=== PATIENT | female | born 1985 | race Caucasian/White ===

== ENCOUNTER 2022-01-26 21:12 | Emergency (ER) | payer MEDICAID, SELFPAY ==
[2022-01-26 21:20] VITALS: BP 124/77; PULSE 67; RESP 18; TEMP 36.3; O2SAT 99; BMI 32.7
--- NOTE | 2022-01-26 21:34 | ED.GENADULT ---
HPI - General Adult General Stated complaint: Sore throat, headaches, chest pain, cough Time Seen by Provider: 01/26/22 21:28 History of Present Illness HPI narrative: Pt is a healthy 36 year old woman who presents with pharyngitis for one week. No fever, chills or difficulty with swallowing. She has repeatedly tested negative for COVID 19. No sick contacts. Pt states symptoms are severe. Related Data Home Medications Medication Instructions Recorded Confirmed No Known Home Medications 01/26/22 01/26/22 Allergies Allergy/AdvReac Type Severity Reaction Status Date / Time No Known Drug Allergies Allergy Verified 01/26/22 21:25 Review of Systems Status of ROS: Reports: 10 or more systems reviewed and unremarkable except as noted in History and below PFSH [facility] Social History Smoking Status: Never smoker How often do you have a drink containing alcohol: 2-4 times a month AUDIT-C Alcohol total score: 2 Non-prescribed substance use: denies use Exam Narrative: Exam Narrative: EXAM GENERAL: Patient appears comfortable and well. EYES: No scleral icterus. ENT: Oropharynx is edematous with no tonsillar enlargement. THYROID: no thyroid nodules or thyromegaly. LYMPH: No supraclavicular or cervical lymphadenopathy. SKIN: Visible skin seen during exam normal or with benign process only. EXT: No dependent lower extremity pedal edema. HEART: Regular rate and rhythm with no murmurs, rubs, or gallops. LUNGS: Clear to auscultation bilaterally with no crackles or wheezes. ABD: Soft, non tender, non distended. PSYCH: Good eye contact, speech is not pressured. Const: Vital Signs, click to edit/add: Vital Signs - 24 hr 01/26/22 21:20 Temperature 97.4 F L Pulse Rate [Left P ulse Oximeter] 67 Respiratory Rate 18 Blood Pressure [Ri ght Upper Arm] 124/77 Pulse Oximetry 99 Oxygen Delivery Me thod Room Air Course Vital Signs Vital signs: Initial Vital Signs Temperature 97.4 F L 01/26/22 21:20 Temperature Source Temporal Artery Scan 01/26/22 21:20 Pulse Rate 67 01/26/22 21:20 Respiratory Rate 18 01/26/22 21:20 Blood Pressure 124/77 01/26/22 21:20 Blood Pressure Mean 92 01/26/22 21:20 Blood Pressure Position Sitting 01/26/22 21:20 Pulse Oximetry 99 01/26/22 21:20 Oxygen Delivery Method 01/26/22 21:20 Vital Signs Temperature 97.4 F L 01/26/22 21:20 Pulse Rate 67 01/26/22 21:20 Respiratory Rate 18 01/26/22 21:20 Blood Pressure 124/77 01/26/22 21:20 Pulse Oximetry 99 01/26/22 21:20 Oxygen Delivery Method 01/26/22 21:20 Temperature 97.4 F L 01/26/22 21:20 Pulse Rate 67 01/26/22 21:20 Respiratory Rate 18 01/26/22 21:20 Blood Pressure 124/77 01/26/22 21:20 Pulse Oximetry 99 01/26/22 21:20 Oxygen Delivery Method 01/26/22 21:20 Discharge Plan Discharge Clinical Impression: Pharyngitis Patient Disposition: Home, Self-Care Condition: Stable Instructions: Pharyngitis (ED) Activity Level: No Restrictions Discharge Diet: Regular Prescriptions: No Action No Known Home Medications Follow Up/Referrals: Mary Fulton MD [Primary Care Provider] - Stand Alone Forms: [employer] Info Instructions
[2022-01-26 22:31] LABS: Strep A DNA Probe* NOT DETECTED (No Detected)
== END 2022-01-26 21:47 | disposition home or self-care (01) ==
PROVIDERS: Emergency Provider Internal Medicine; PCP Family Medicine
DX: J02.9 Acute pharyngitis, unspecified (principal)
CPT/HCPCS: 87651; 99283

== ENCOUNTER 2022-03-30 12:50 | Emergency (ER) | payer MEDICAID, SELFPAY ==
[2022-03-30 14:00] VITALS: BP 123/80; PULSE 72; RESP 18; TEMP 36.3; O2SAT 100; BMI 33.1
[2022-03-30 14:38] LABS: Strep A DNA Probe* NOT DETECTED (No Detected)
--- OUTSIDE RECORDS SUMMARY | 2022-03-30 14:48 | XMS_ITS | Clinical Summary ---
:1985 Author Organization [employer] [facility] [place] [address] Care Team Providers Name Role Phone Mary Fulton MD Primary Care Provider Allergies No known active allergies Medications Medication Sig Dispensed Refills Start Date End Date Status ondansetron (ZOFRAN) 4 Take 1 Tablet (4 30 Tablet 0 11/04/2021 Active mg tabletIndications: mg) by mouth every Nausea and vomiting, 8 hours if needed unspecified vomiting for type Nausea/Vomiting. triamcinolone Apply topically to 45 g 0 03/17/2022 Active (ARISTOCORT; KENALOG) affected area(s) 0.1 % three times daily. creamIndications: Bee sting, accidental or unintentional, initial encounter, Allergic reaction to bee sting Active Problems Problem Noted Date Moderate episode of recurrent major depressive disorde r 02/28/2016 Endometriosis 02/06/2015 Eczema, dyshidrotic 08/06/2014 Resolved Problems Problem Noted Date Resolved Date Supervision of other normal 09/07/2007 Encounters Date Type Specialty Care Team Description 03/17/2022 Office Visit Beatriz Echeverria Hand Pain/prob niecy (Left hand JULY Fairchild bee sting on S unday around 2-3 pm./Painful and burning sensation. Warm /hot to the touch and gotte n bigger. Redness has spr ead out more about an inch a nd a half since yesterday ./Patient states has not slept the last few days due to the pain. /Patient used b enadryl and tylenol. Not mu ch helped./Patient had chills yesterday, hamlet es any fevers) 03/17/2022 Travel from Last 3 Months Immunizations Name Administration Dates Next Due Influenza, IIV3 (Age >=3 years) 05/05/2010, 04/12/2008 Tdap 07/14/2019, 09/28/2009 Family History Medical History Relation Name Comments ADD / ADHD Brother Good Health Father Diabetes Maternal Grandmother Good Health Mother Cancer Paternal Grandfather unknown Other Paternal Grandfather from COVID Diabetes Paternal Grandmother Mental illness Sister Relation Name Status Comments Brother Father Alive Maternal Grandmother Mother Alive Paternal Grandfather Paternal Grandmother Sister Social History Tobacco Use Types Packs/Day Years Used Date Never Smoker Smokeless Tobacco: Never Used Tobacco Cessation: Counseling Given: Yes Alcohol Use Standard Drinks/Week Comments Not Currently 0 (1 standard drink = 0.6 oz pure alcoho l) 2 x per week Alcohol Habits Answer Date Recorded How often do you have a drink containing alcohol? Not asked How many drinks containing alcohol do you have on a Not aske d typical day when you are drinking? How often do you have six or more drinks on one occasion? No t asked Comment: 2 x per week 11/04/2021 Sex Assigned at Date Recorded Not on file COVID-19 Exposure Response Date Recorded In the last 10 days, have you been in contact with No / Unsu re 03/17/2022 3:15 PM CDT someone who was confirmed or suspected to have Coronavirus/COVID-19? Obstetrics History Para Term AB IAB SAB Ectopic Multiple Living Live Births 4 4 2 1 0 0 0 0 4 Date Outcome GA Total Labor/2nd/3rd Weight Sex Delivery Anes PTL Dominga A 1 A5 Name Clin Labor Term Term Para Last Filed Vital Signs Vital Sign Reading Time Taken Comments Blood Pressure 111/76 03/17/2022 3:23 PM CDT Pulse 77 03/17/2022 3:23 PM CDT Temperature 36.6 ??C (97.8 ??F) 03/17/2022 3:23 PM CDT Respiratory Rate 16 10/08/2010 6:30 PM CDT Oxygen Saturation 97% 03/17/2022 3:23 PM CDT Inhaled Oxygen Concentration - - Weight 81.6 kg (180 lb) 03/17/2022 3:23 PM CDT Height 153 cm (5' 0.25) 02/26/2021 1:04 PM CDT Body Mass Index 34.86 02/26/2021 1:04 PM CDT Plan of Treatment Health Maintenance Due Date Last Done Comments Hepatitis C screening for age 0801/31/2004 18-79 Depression screening for age 12+ 07/14/2020 07/14/2019, , 02/17/2017, Additional history exists Pap test for age 21-65 02/27/2021 02/28/2016, 02/28/2016, 10/19/2013, Additional history exists COVID-19 vaccine series (2 - 03/17/2021 02/17/2021 Moderna series) Influenza for age 9-49 02/19/2022 05/05/2010, 04/12/2008 BMI (ht and wt on same day) for 02/26/2022 02/26/2021, 12/2020, age 18+ 10/21/2020, Additional history exists Tetanus booster 07/14/2029 07/14/2019, 09/28/2009 Tdap Completed 07/14/2019, 09/28/2009 Results Not on filefrom Last 3 Months Insurance Payer Benefit Plan / Subscriber ID Effective Dates Phone Addre ss Type Group [employer] ADELSO NOBLE ADELSO [id number] 2021-Present [address] [place] [address] (Home) [place] [address] [place] Inmate Billing Other 06/21/1968 [address] (Home) [facility] [address] Advance Directives Latest Code Status on File Code Status Date Activated Date Inactivated Comments Full Code 10/08/2010 9:24 AM 10/08/2010 9:56 PM Full Code 09/26/2009 2:13 AM 09/28/2009 2:12 PM Full Code 09/21/2009 6:08 PM 09/22/2009 2:04 AM Full Code 09/20/2009 10:26 AM 09/20/2009 4:56 PM Full Code 09/06/2009 8:11 AM 09/06/2009 12:17 PM Care Teams Digital Engineer Relationship Specialty Start Date End Date Mary Fulton MD PCP - General Family Practice 02/28/16 [address] [place] [address]
[2022-03-30 14:50] LABS: PCR FLU A Negative PCR FLU A (Negative); PCR FLU B Negative PCR FLU B (Negative); PCR RSV Negative PCR RSV (Negative)
[2022-03-30 14:51] LABS: SARS PCR* Negative SARS-CoV-2 (Negative)
[2022-03-30 14:52] VITALS: BP 117/59; PULSE 67; RESP 16; O2SAT 98
--- NOTE | 2022-03-30 15:09 | ED.GENADULT ---
HPI - General Adult General Chief complaint: Cough Stated complaint: Vomiting, fever, chest pain Time Seen by Provider: 03/30/22 13:30 History of Present Illness HPI narrative: This 37-year-old female comes in reporting upper respiratory symptoms that began this morning. She reports coughing with posttussive emesis. She states that she had a fever and did take Tylenol. She does not report any shortness of breath. She states that she has a sore throat. Prior to this she has been in good health. Related Data Previous Rx's Medication Instructions Recorded ketorolac 10 mg tablet 10 mg PO Q8H 5 days #15 tabs 03/30/22 methylprednisolone 4 mg tablets in See Rx Instructions PO .COMPLEX 03/30/22 a dose pack (Medrol (Andi)) #21 ea ondansetron HCl 4 mg tablet 4 mg PO Q6H #10 tabs 03/30/22 Allergies Allergy/AdvReac Type Severity Reaction Status Date / Time No Known Drug Allergies Allergy Verified 01/26/22 21:25 Review of Systems Status of ROS: Reports: 10 or more systems reviewed and unremarkable except as noted in History and below Narrative: Constitutional: No weight gain or loss. Eyes: No discharge. No vision changes. HENT: No congestion, no sore throat, no ear pain. Cardiovascular: No chest pain, no palpitations. Respiratory: No shortness of breath, no wheezes. Frequent cough. Gastrointestinal: No abdominal pain, no diarrhea. Repeated vomiting. Genitourinary: No dysuria, no hematuria. Musculoskeletal: Normal range of motion. Skin: No rashes, no pruritis. Neurological: No dizziness, weakness, sensory change, speech change. Endo/Heme/Allergies: No bruising or bleeding. No polydipsia. Pysch: no suicidality, no anxiety, no insomnia. All other systems reviewed and are negative. [facility] Social History Smoking Status: Never smoker How often do you have a drink containing alcohol: 2-4 times a month AUDIT-C Alcohol total score: 2 Non-prescribed substance use: denies use service: No Exam Narrative: Exam Narrative: Constitutional: Well-developed, well-nourished, no acute distress. HEENT: Normocephalic, atraumatic. Neck: Normal range of motion. Nontender. Supple. Heart: Regular. No murmurs. Normal rate. Intact distal pulses. Lungs: Clear to auscultation. No chest discomfort. No wheezes, rhonchi, or rales. Abdomen: Normal bowel sounds. Nontender. No rebound tenderness. Genitalia: Deferred. Back: No midline tenderness. Normal range of motion. Extremities: Normal range of motion. No injury. Skin: Intact. No rash. Warm. No erythema or pallor. Neurologic: No altered sensation. No weakness. Alert and oriented. Psychiatric: No suicidality. No anxiety or depression. No insomnia. Nursing notes and vitals signs are reviewed. Const: Vital Signs, click to edit/add: Vital Signs - 24 hr 03/30/22 14:00 03/30/22 14:52 Temperature 97.3 F L Pulse Rate [Right Pulse Oximeter] 72 67 Respiratory Rate 18 16 Blood Pressure [Ri ght Upper Arm] 123/80 117/59 L Pulse Oximetry 100 98 Oxygen Delivery Me thod Room Air Room Air Course Vital Signs Vital signs: Initial Vital Signs Temperature 97.3 F L 03/30/22 14:00 Temperature Source Temporal Artery Scan 03/30/22 14:00 Pulse Rate 72 03/30/22 14:00 Respiratory Rate 18 03/30/22 14:00 Blood Pressure 123/80 03/30/22 14:00 Blood Pressure Mean 94 03/30/22 14:00 Blood Pressure Position Sitting 03/30/22 14:00 Pulse Oximetry 100 03/30/22 14:00 Oxygen Delivery Method 03/30/22 14:00 Vital Signs Temperature 97.3 F L 03/30/22 14:00 Pulse Rate 72 03/30/22 14:00 Respiratory Rate 18 03/30/22 14:00 Blood Pressure 123/80 03/30/22 14:00 Pulse Oximetry 100 03/30/22 14:00 Oxygen Delivery Method 03/30/22 14:00 Temperature 97.3 F L 03/30/22 14:00 Pulse Rate 67 03/30/22 14:52 Respiratory Rate 16 03/30/22 14:52 Blood Pressure 117/59 L 03/30/22 14:52 Pulse Oximetry 98 03/30/22 14:52 Oxygen Delivery Method 03/30/22 14:52 Medical Decision Making MDM Narrative Medical decision making narrative: This patient comes in with upper respiratory symptoms that began this morning. Testing for strep, influenza, COVID, and RSV all returned negative. This patient has normal vital signs. She did received prescription for Toradol, Zofran, and Medrol Dosepak. She is requesting a day off from work also. Lab Data Labs: Lab Results 03/30/22 03/30/22 Range/Units 14:02 14:02 SARS-CoV-2 (PCR) Negative SARS-CoV-2 (Negative) Influenza Type A (PCR) Negative PCR FLU A (Negative) Influenza Type B (PCR) Negative PCR FLU B (Negative) RSV (PCR) Negative PCR RSV (Negative) Group A Strep DNA NOT DETECTED (No Detected) Discharge Plan Discharge Clinical Impression: Acute upper respiratory infection Patient Disposition: Home, Self-Care Condition: Stable Additional Instructions: Take medication as needed and indicated. Follow up with MD or return if worsening. Prescriptions: New ondansetron HCl 4 mg tablet 4 mg PO Q6H Qty: 10 0RF ketorolac 10 mg tablet 10 mg PO Q8H 5 Days Qty: 15 0RF methylprednisolone [Medrol (Andi)] 4 mg tablets,dose pack See Rx Instructions .ROUTE .COMPLEX Qty: 21 0RF Rx Instructions: orally per package directions Follow Up/Referrals: Mary Fulton MD [Primary Care Provider] - Stand Alone Forms: [employer] Info Instructions
[2022-03-30] MEDS: ONDANSETRON ODT 4 MG TAB PO (15:18)
[2022-03-30 15:40] VITALS: BP 122/62; PULSE 67; RESP 16; TEMP 36.3
== END 2022-03-30 15:42 | disposition home or self-care (01) ==
PROVIDERS: Emergency Provider Emergency Medicine Emergency Medical Services; PCP Family Medicine
DX: J06.9 Acute upper respiratory infection, unspecified (principal)
CPT/HCPCS: 87502; 87631; 87634; 87635; 87651; 99283; 99284; A9270

== ENCOUNTER 2022-05-31 18:42 | Emergency (ER) | payer MEDICAID, SELFPAY ==
[2022-05-31 18:55] VITALS: BP 124/77; PULSE 102; RESP 18; TEMP 37.3; O2SAT 99; BMI 33.1
--- NOTE | 2022-05-31 19:13 | ED_ITS ---
HPI - General Adult General Chief complaint: Fever Stated complaint: Fever, Vomiting, Chest Pain, Aches Time Seen by Provider: 05/31/22 19:08 History of Present Illness HPI narrative: This 37-year-old female comes in reporting generalized body aches and pains with fever, cough, and nasal congestion. These symptoms hit her rather suddenly yesterday. She did measure a temperature of 101.6?. She arrives here with normal temperature. She does not report any shortness of breath. Related Data Home Medications Medication Instructions Recorded Confirmed No Known Home Medications 05/31/22 05/31/22 Allergies Allergy/AdvReac Type Severity Reaction Status Date / Time No Known Drug Allergies Allergy Verified 05/31/22 19:01 Review of Systems Status of ROS: Reports: 10 or more systems reviewed and unremarkable except as noted in History and below Narrative: Constitutional: No weight gain or loss. She reports a fever. Eyes: No discharge. No vision changes. HENT: No ear pain. She has nasal congestion and sore throat. Cardiovascular: No palpitations. Respiratory: No shortness of breath, no wheezes. Chest discomfort when coughing. Gastrointestinal: No abdominal pain, no vomiting, no diarrhea. Genitourinary: No dysuria, no hematuria. Musculoskeletal: Normal range of motion. Skin: No rashes, no pruritis. Neurological: No dizziness, weakness, sensory change, speech change. Endo/Heme/Allergies: No bruising or bleeding. No polydipsia. Pysch: no suicidality, no anxiety, no insomnia. All other systems reviewed and are negative. [facility] Social History Smoking Status: Never smoker How often do you have a drink containing alcohol: 2-4 times a month AUDIT-C Alcohol total score: 2 Non-prescribed substance use: denies use service: No Exam Narrative: Exam Narrative: Constitutional: Well-developed, well-nourished, no acute distress. HEENT: Normocephalic, atraumatic. Neck: Normal range of motion. Nontender. Supple. Heart: Regular. No murmurs. Normal rate. Intact distal pulses. Lungs: Clear to auscultation. No chest discomfort. No wheezes, rhonchi, or rales. Abdomen: Normal bowel sounds. Nontender. No rebound tenderness. Genitalia: Deferred. Back: No midline tenderness. Normal range of motion. Extremities: Normal range of motion. No injury. Skin: Intact. No rash. Warm. No erythema or pallor. Neurologic: No altered sensation. No weakness. Alert and oriented. Psychiatric: No suicidality. No anxiety or depression. No insomnia. Nursing notes and vitals signs are reviewed. Const: Vital Signs, click to edit/add: Vital Signs - 24 hr 05/31/22 18:55 Temperature 99.1 F Pulse Rate [Right Pulse Oximeter] 102 H Respiratory Rate 18 Blood Pressure [Ri ght Upper Arm] 124/77 Pulse Oximetry 99 Oxygen Delivery Me thod Room Air Course Vital Signs Vital signs: Initial Vital Signs Temperature 99.1 F 05/31/22 18:55 Temperature Source Temporal Artery Scan 05/31/22 18:55 Pulse Rate 102 H 05/31/22 18:55 Respiratory Rate 18 05/31/22 18:55 Blood Pressure 124/77 05/31/22 18:55 Blood Pressure Mean 92 05/31/22 18:55 Blood Pressure Position Sitting 05/31/22 18:55 Pulse Oximetry 99 05/31/22 18:55 Oxygen Delivery Method 05/31/22 18:55 Vital Signs Temperature 99.1 F 05/31/22 18:55 Pulse Rate 102 H 05/31/22 18:55 Respiratory Rate 18 05/31/22 18:55 Blood Pressure 124/77 05/31/22 18:55 Pulse Oximetry 99 05/31/22 18:55 Oxygen Delivery Method 05/31/22 18:55 Temperature 99.1 F 05/31/22 18:55 Pulse Rate 102 H 05/31/22 18:55 Respiratory Rate 18 05/31/22 18:55 Blood Pressure 124/77 05/31/22 18:55 Pulse Oximetry 99 05/31/22 18:55 Oxygen Delivery Method 05/31/22 18:55 Medical Decision Making MDM Narrative Medical decision making narrative: This patient comes in with typical symptoms of influenza. Testing does confirm presence of influenza a. The patient received a prescription for Tamiflu and some tablets of Tylenol 3. Lab Data Labs: Lab Results 05/31/22 Range/Units 19:06 SARS-CoV-2 (PCR) Negative SARS-CoV-2 (Negative) Influenza Type A (PCR) POSITIVE PCR FLU A A (Negative) Influenza Type B (PCR) Negative PCR FLU B (Negative) Discharge Plan Discharge Clinical Impression: Influenza A Patient Disposition: Home, Self-Care Condition: Unchanged Additional Instructions: Take medication as needed and indicated. Follow up with MD or return if worsening. Prescriptions: No Action No Known Home Medications Follow Up/Referrals: Mary Fulton MD [Primary Care Provider] - Stand Alone Forms: [employer] Info Instructions
--- OUTSIDE RECORDS SUMMARY | 2022-05-31 19:17 | XMS_ITS | Clinical Summary ---
:1985 Author Organization [employer] [facility] [place] [address] Care Team Providers Name Role Phone Mary Fulton MD Primary Care Provider [phone] Allergies No known active allergies Medications Medication [...] Tobacco Use Types Packs/Day Years Used Date Smoking Tobacco: Never Smokeless Tobacco: Never Tobacco Cessation: Counseling Given: Yes Alcohol Use Standard Drinks/Week Comments Not Currently 0 (1 standard drink = 0.6 oz pure alcoho l) 2 x per week Sex Assigned at Date Recorded Not on file Obstetrics History Para Term AB IAB SAB [...] wt on same day) for 02/26/2022 02/26/2021, 09/12/2020, age 18+ 10/21/2020, Additional history exists Tetanus booster 07/14/2029 07/14/2019, 09/28/2009 HIV for age 15-65 Completed 03/17/2013, 09/07/2007 Tdap Completed 07/14/2019, 09/28/2009 Results Not on filefrom Last 3 Months Insurance Payer Benefit Plan / Subscriber ID Effective Dates Phone Addre ss Type Group [employer] ADELSO CASTAÑEDAALYX ADELSO [id number] 2021-Present [address] [place] [address] Advance Directives Latest Code Status on File Code Status Date Activated Date Inactivated Comments Full Code 10/08/2010 9:24 AM 10/08/2010 9:56 PM Code Status History Code Status Date Activated Date Inactivated Comments Full Code 09/26/2009 2:13 AM 09/28/2009 2:12 PM Full Code 09/21/2009 6:08 PM 09/22/2009 2:04 AM Full Code 09/20/2009 10:26 AM 09/20/2009 4:56 PM Full Code 09/06/2009 8:11 AM 09/06/2009 12:17 PM Care Teams [employer] Relationship Specialty Start Date End Date Mary Fulton MD PCP - General Family Practice 02/28/16 [address] [place] [address]
[2022-05-31 19:55] LABS: PCR FLU A POSITIVE PCR FLU A (Negative); PCR FLU B Negative PCR FLU B (Negative)
[2022-05-31 19:59] LABS: SARS PCR* Negative SARS-CoV-2 (Negative)
[2022-05-31 20:16] VITALS: RESP 18; O2SAT 98
[2022-05-31 20:18] VITALS: BP 116/78; PULSE 91; RESP 18
== END 2022-05-31 20:18 | disposition home or self-care (01) ==
PROVIDERS: Emergency Provider Emergency Medicine Emergency Medical Services; PCP Family Medicine
DX: J09.X2 Influenza due to identified novel influenza A virus with other respiratory manifestations (principal)
CPT/HCPCS: 87631; 99283; 99284

== ENCOUNTER 2022-08-05 15:33 | Emergency (ER) | payer MEDICAID, SELFPAY ==
[2022-08-05 15:43] VITALS: BP 123/79; PULSE 72; RESP 16; TEMP 36.4; O2SAT 99; BMI 33.2
--- NOTE | 2022-08-05 17:03 | ED_ITS ---
HPI - Headache General Chief Complaint: Headache/Migraine Stated Complaint: Headache Time Seen by Provider: 08/05/22 16:44 History of Present Illness HPI Narrative: This 37-year-old female comes in reporting neck pain causing a occipital type headache over the past 3 or 4 days. She states that she woke up a few days ago and thought that she might have slept wrong causing some neck discomfort. She massaged her neck and did not get much relief. Instead symptoms have worsened. She did go to urgent care yesterday and received prescription for a steroid and Flexeril. These treatments have not helped her. She does not report any fevers. She does not have any neurologic deficits. She does not report a history of prior neck pain and there was no mechanism of injury or strenuous activity to trigger these symptoms. Related Data Previous Rx's Medication Instructions Recorded ketorolac 10 mg tablet 10 mg PO Q8H 5 days #15 tabs 08/05/22 Allergies Allergy/AdvReac Type Severity Reaction Status Date / Time No Known Drug Allergies Allergy Verified 08/05/22 15:47 Review of Systems Status of ROS: Reports: 10 or more systems reviewed and unremarkable except as noted in History and below Narrative: Constitutional: No fevers, no weight gain or loss. Eyes: No discharge. No vision changes. HENT: No congestion, no sore throat, no ear pain. Cardiovascular: No chest pain, no palpitations. Respiratory: No shortness of breath, no wheezes, no cough. Gastrointestinal: No abdominal pain, no vomiting, no diarrhea. Genitourinary: No dysuria, no hematuria. Musculoskeletal: Normal range of motion. Diffuse pain in the posterior neck radiating into the occipital region with headache. Skin: No rashes, no pruritis. Neurological: No dizziness, weakness, sensory change, speech change. Endo/Heme/Allergies: No bruising or bleeding. No polydipsia. Pysch: no suicidality, no anxiety, no insomnia. All other systems reviewed and are negative. [facility] Social History Smoking Status: Never smoker Do you use any of these nicotine containing products: None How often do you have a drink containing alcohol: 2-4 times a month AUDIT-C Alcohol total score: 2 Non-prescribed substance use: denies use service: No Exam Narrative: Exam Narrative: Constitutional: Well-developed, well-nourished, no acute distress. HEENT: Normocephalic, atraumatic. Neck: Normal range of motion. No midline tenderness when palpating along the spine. Supple. Heart: Regular. No murmurs. Normal rate. Intact distal pulses. Lungs: Clear to auscultation. No chest discomfort. No wheezes, rhonchi, or rales. Abdomen: Normal bowel sounds. Nontender. No rebound tenderness. Genitalia: Deferred. Back: No midline tenderness. Normal range of motion. Extremities: Normal range of motion. No injury. Skin: Intact. No rash. Warm. No erythema or pallor. Neurologic: No altered sensation. No weakness. Alert and oriented. Psychiatric: No suicidality. No anxiety or depression. No insomnia. Nursing notes and vitals signs are reviewed. Const: Vital Signs, click to edit/add: Vital Signs - 24 hr 08/05/22 15:43 Temperature 97.5 F L Pulse Rate [Pulse Oximeter] 72 Respiratory Rate 16 Blood Pressure [Ri ght Upper Arm] 123/79 Pulse Oximetry 99 Oxygen Delivery Me thod Room Air Course Vital Signs Vital signs: Initial Vital Signs Temperature 97.5 F L 08/05/22 15:43 Temperature Source Temporal Artery Scan 08/05/22 15:43 Pulse Rate 72 08/05/22 15:43 Pulse Rhythm 08/05/22 15:43 Pulse Strength 3+ Normal 08/05/22 15:43 Respiratory Rate 16 08/05/22 15:43 Blood Pressure 123/79 08/05/22 15:43 Blood Pressure Mean 93 08/05/22 15:43 Blood Pressure Position Sitting 08/05/22 15:43 Pulse Oximetry 99 08/05/22 15:43 Oxygen Delivery Method 08/05/22 15:43 Vital Signs Temperature 97.5 F L 08/05/22 15:43 Pulse Rate 72 08/05/22 15:43 Respiratory Rate 16 08/05/22 15:43 Blood Pressure 123/79 08/05/22 15:43 Pulse Oximetry 99 08/05/22 15:43 Oxygen Delivery Method 08/05/22 15:43 Temperature 97.5 F L 08/05/22 15:43 Pulse Rate 72 08/05/22 15:43 Respiratory Rate 16 08/05/22 15:43 Blood Pressure 123/79 08/05/22 15:43 Pulse Oximetry 99 08/05/22 15:43 Oxygen Delivery Method 08/05/22 15:43 MDM - Headache MDM Narrative Medical decision making narrative: This patient comes in with an occipital type headache with neck pain which is typical of a tension headache. She did not have any particular injury event or disability that requires imaging. She does have pain on either side of the nuchal ligament in the area of the occipital nerves. I did offer a therapeutic injection in this area which she agreed to. She received 125 mg of Solu-Medrol and 2% lidocaine totaling 6 mL. 3 mL was injected on either side of the nuchal ligament overlying the occipital nerves. The patient tolerated this well. She also received an intramuscular injection of Toradol 30 mg. This brought significant relief to her symptoms within 15-20 minutes. She is okay to be discharged home and did receive a prescription for Toradol. Discharge Plan Discharge Clinical Impression: Tension headache Patient Disposition: Home, Self-Care Condition: Stable Additional Instructions: Take medication as needed and indicated. Increase activity as tolerated. Follow up with MD or return if worsening. Prescriptions: New ketorolac 10 mg tablet 10 mg PO Q8H 5 Days Qty: 15 0RF Follow Up/Referrals: Mary Fulton MD [Primary Care Provider] - Stand Alone Forms: [employer] Info Instructions
[2022-08-05] MEDS: KETOROLAC 30 MG/ML inj IM (17:08)
[2022-08-05] MEDS: METHYLPREDNISOLONE SOD SUCC 62.5 MG/ML (125) 125 MG IM (17:09)
[2022-08-05] MEDS: lidocaine HCL 2 % MULTIDOSE 20 ML VIAL INJECTION (17:09)
[2022-08-05 17:43] VITALS: BP 119/66
== END 2022-08-05 17:49 | disposition home or self-care (01) ==
PROVIDERS: Emergency Provider Emergency Medicine Emergency Medical Services; PCP Family Medicine
DX: M54.81 Occipital neuralgia (principal)
CPT/HCPCS: 20552; 96372; 99283; 99284; J1885; J2930

== ENCOUNTER 2022-08-13 21:14 | Emergency (ER) | payer MEDICAID, SELFPAY ==
[2022-08-13 21:20] VITALS: BP 123/85; PULSE 78; RESP 16; TEMP 35.6; O2SAT 99
--- NOTE | 2022-08-13 21:39 | ED.GENADULT ---
HPI - General Adult General Time Seen by Provider: 21:39 Date Seen: 08/13/22 Chief complaint: Head Injury/Pain Stated complaint: Pain back of head,right ear, and neck Time Seen by Provider: 08/13/22 21:37 Source: patient and RN notes reviewed Mode of arrival: ambulatory Limitations: no limitations History of Present Illness HPI narrative: Patient is a 37-year-old female coming in with right-sided neck pain pain in the back of her head. Is generalizing up her right ear now. No visual changes no hearing changes. There is no trauma, no fevers. She has had symptoms for about 2 weeks. It went away a little bit but now is coming back. She was off work for about 4 days last week. She did go into the clinic. She has sporadically used Tylenol and ibuprofen. It is not going into her arms, no numbness tingling or weakness. No rash noted. Pain will come in almost shock like fashion at time. She states sometimes it will feel like when you go to the dentist in the hit a nerve root, almost like a zinging type pain. Related Data Previous Rx's Medication Instructions Recorded ketorolac 10 mg tablet 10 mg PO Q8H 5 days #15 tabs 08/05/22 Allergies Allergy/AdvReac Type Severity Reaction Status Date / Time No Known Drug Allergies Allergy Verified 08/05/22 15:47 Review of Systems Status of ROS: Reports: 6 or more systems reviewed and unremarkable except as noted in History and below [facility] Social History Smoking Status: Never smoker Do you use any of these nicotine containing products: None How often do you have a drink containing alcohol: 2-4 times a month AUDIT-C Alcohol total score: 2 Non-prescribed substance use: denies use service: No Exam Narrative: Exam Narrative: Patient is sitting on the bed, does not want to turn her neck. Pupils equal round reactive to light scar clear she is able to speak in complete sentences. TMs canals are normal ears are normal. Scalp in skin of the head neck or without any rash. There is no midline tenderness of her spine. She has some point tenderness over the right occipital area and not the left. There is no neck masses no cervical adenopathy no thyromegaly masses or nodules lungs clear, good air entry, no difficulty breathing. CV regular rate and rhythm no murmur. Arms have symmetrical movement, strength is 5/5 in normal. Normal light touch sensation. Const: Vital Signs, click to edit/add: Vital Signs - 24 hr 08/13/22 21:20 Temperature 96.0 F L Pulse Rate [Left F emoral] 78 Respiratory Rate 16 Blood Pressure [Ri ght Upper Arm] 123/85 Pulse Oximetry 99 Oxygen Delivery Me thod Room Air Course Course Hospital Course: Have reviewed with patient that I think that this represents probable occipital neuralgia. We will get a baseline x-ray just to see if she has significant underlying arthritis or changes in her neck. I do not think labs are necessary at this time. Will talk to her further about a course of Toradol and scheduled Tylenol. Once I have seen her cervical spine x-ray we have discussed doing trigger point injection with some lidocaine in the area. She would like to proceed with this. Reevaluation(s) Reevaluation #1: Reviewed with patient that my preliminary review of her films shows loss of the normal lordosis that can be seen with muscle tension and spasm. I do not see any acute bony abnormalities but we will await the Radiology over-read. Patient was consented on trigger point injection along the right occipital area. Risks and benefits were reviewed. We reviewed that it was her right side. I palpated the area and found maximal point tenderness in actually was able to recreate the sharp pain by palpating over the right occiput. 5 mL of 2% plain lidocaine was drawn up and was fanned out over the area of maximal tenderness. She tolerated this well there were no immediate complications. Did offer her a dose of IM Toradol which she would like, will subsequently order 30 mg IM Toradol. We discussed use of oral Toradol and Flexeril with combination acetaminophen at time of discharge. Time: 22:44 Additional Reevaluation(s): As patient was walking out of the ER, did briefly talk to her. Her head is overall feeling better back there. She can feel little soreness but symptoms have improved. Vital Signs Vital signs: Initial Vital Signs Temperature 96.0 F L 08/13/22 21:20 Temperature Source Temporal Artery Scan 08/13/22 21:20 Pulse Rate 78 08/13/22 21:20 Pulse Rhythm 08/13/22 21:20 Respiratory Rate 16 08/13/22 21:20 Blood Pressure 123/85 08/13/22 21:20 Blood Pressure Mean 97 08/13/22 21:20 Blood Pressure Position Sitting 08/13/22 21:20 Pulse Oximetry 99 08/13/22 21:20 Oxygen Delivery Method 08/13/22 21:20 Vital Signs Temperature 96.0 F L 08/13/22 21:20 Pulse Rate 78 08/13/22 21:20 Respiratory Rate 16 08/13/22 21:20 Blood Pressure 123/85 08/13/22 21:20 Pulse Oximetry 99 08/13/22 21:20 Oxygen Delivery Method 08/13/22 21:20 Temperature 96.0 F L 08/13/22 21:20 Pulse Rate 78 08/13/22 21:20 Respiratory Rate 16 08/13/22 21:20 Blood Pressure 123/85 08/13/22 21:20 Pulse Oximetry 99 08/13/22 21:20 Oxygen Delivery Method 08/13/22 21:20 Medical Decision Making Imaging Data X-ray cervical spine: Attestation: I have reviewed the pertinent imaging results. Radiologist's impression: Patient: PERCY KLEIN Facility:?[facility] Patient ID:?[id number] Site Patient ID:?[id number]. Site :?[id number] Study:?XRay Spine Cervical 4V-08/13/2022 10:47:08 PM Ordering Physician:Sen Babb Final Report: Indication: Neck pain, no history of trauma Technique: Four view cervical spine Comparison: None Findings: The lateral and swimmer`s views demonstrate the skull base to the C6 vertebral body. Bones: Alignment is normal. No fractures or bone lesions. Joint spaces: Unremarkable. Soft tissues: Unremarkable. Impression: The lateral views only include the skull base to the C6 vertebral body. Recommend CT for complete evaluation through the cervical thoracic junction. No abnormality seen in the visualized cervical spine. Dictated by Zian Hickey MD @ 08/13/2022 11:09:20 PM (Electronic Signature) Critical Care Time Critical Care Time Critical Care Time: No Discharge Plan Discharge Clinical Impression: Cervico-occipital neuralgia of right side Patient Disposition: Home, Self-Care Condition: Stable Instructions: Acute Headache (ED) Additional Instructions: I believe your symptoms are coming from a condition called occipital neuralgia. We will try a course of scheduled Toradol. You can use Flexeril at bedtime as needed to help with sleep. Take Tylenol 1000 mg 3 times a day for the next 1-2 weeks as well. You do need you to get scheduled to follow up in clinic for recheck. If you have ongoing issues, you may need to be referred to Neurology for further evaluation and treatment of this. You can try ice or heat in use whichever makes this feel better. I would recommend trying ice 1st. Activity Level: Activity as Tolerated Prescriptions: No Action ketorolac 10 mg tablet 10 mg PO Q8H 5 Days Qty: 15 0RF Follow Up/Referrals: Mary Fulton MD [Primary Care Provider] - Stand Alone Forms: [employer] Info Instructions
--- NOTE | 2022-08-13 21:48 | CRLHL7_ITS ---
For Patients: As a result of the Century Cures Act, medical imaging exams and procedure reports are released immediately into your electronic medical record. You may view this report before your referring provider. If you have questions, please contact your health care provider. Indication: Neck pain, no history of trauma Technique: Four view cervical spine Comparison: None Findings: The lateral and swimmer`s views demonstrate the skull base to the C6 vertebral body. Bones: Alignment is normal. No fractures or bone lesions. Joint spaces: Unremarkable. Soft tissues: Unremarkable. Impression: The lateral views only include the skull base to the C6 vertebral body. Recommend CT for complete evaluation through the cervical thoracic junction. No abnormality seen in the visualized cervical spine. Dictated by Zina Hickey MD @ 08/13/2022 11:09:20 PM (Electronically Signed)
== END 2022-08-13 23:20 | disposition home or self-care (01) ==
PROVIDERS: Emergency Provider Family Medicine; PCP Family Medicine
DX: M54.81 Occipital neuralgia (principal)
CPT/HCPCS: 20552; 72040; 99283

== ENCOUNTER 2023-01-24 23:47 | Emergency (ER) | payer MEDICAID, SELFPAY ==
[2023-01-24 23:53] VITALS: BP 114/77; PULSE 69; RESP 16; TEMP 36.6; O2SAT 100; BMI 33.4
--- NOTE | 2023-01-25 00:06 | ED_ITS ---
HPI - General Adult General Chief complaint: Extremity Pain/Injury, Upper Stated complaint: fracture or broken thumb - left side Time Seen by Provider: 01/24/23 23:57 Source: patient Mode of arrival: ambulatory Limitations: no limitations History of Present Illness HPI narrative: 37-year-old female coming in today complaining of thumb pain going on for approximately 3 days. He she seems to get worse. Movement makes it worse, nothing seems to make it better. It throbs when she is at rest. She has a hard time setting the palmar surface of the thumb down with any surface is that seems to irritate it. She denies pain in any other joints, no fevers or chills. No recent illness or systemic symptoms. Related Data Previous Rx's Medication Instructions Recorded methylprednisolone 4 mg tablets in See Rx Instructions PO .COMPLEX 01/25/23 a dose pack (Medrol (Andi)) #21 ea Allergies Allergy/AdvReac Type Severity Reaction Status Date / Time No Known Drug Allergies Allergy Verified 08/05/22 15:47 Review of Systems Status of ROS: Reports: 6 or more systems reviewed and unremarkable except as noted in History and below PFSH [facility] Social History Smoking Status: Never smoker Do you use any of these nicotine containing products: None How often do you have a drink containing alcohol: 2-4 times a month AUDIT-C Alcohol total score: 2 Non-prescribed substance use: denies use service: No Exam Narrative: Exam Narrative: Well-nourished well-developed patient in no acute distress. Alert and oriented. Answers questions appropriately. Mood and affect are appropriate. Thoughts are goal oriented and rational. No tangential or magical thinking noted. Patient speaks in full sentences without needing to catch their breath. HEENT: Normocephalic atraumatic. Pupils are equally round reactive to light. Extraocular muscles are intact. Conjunctivae are moist without any icterus noted. Moist mucous membranes. Hand: Has normal appearance. Her thumb is not swollen or erythematous. She has full range of motion at the MCP and the interphalangeal joint. This does not cause tenderness. On the palmar surface of the thumb just proximal to the interphalangeal joint she has a palpable tendon that can be moved back and forth, this causes her discomfort. Const: Vital Signs, click to edit/add: Vital Signs - 24 hr 01/24/23 23:53 Temperature 97.9 F Pulse Rate [Right Pulse Oximeter] 69 Respiratory Rate 16 Blood Pressure [Ri ght Upper Arm] 114/77 Pulse Oximetry 100 Oxygen Delivery Me thod Room Air Course Vital Signs Vital signs: Initial Vital Signs Temperature 97.9 F 01/24/23 23:53 Temperature Source Temporal Artery Scan 01/24/23 23:53 Pulse Rate 69 01/24/23 23:53 Pulse Rhythm Regular 01/24/23 23:53 Respiratory Rate 16 01/24/23 23:53 Blood Pressure 114/77 01/24/23 23:53 Blood Pressure Mean 89 01/24/23 23:53 Blood Pressure Position Sitting 01/24/23 23:53 Pulse Oximetry 100 01/24/23 23:53 Oxygen Delivery Method Room Air 01/24/23 23:53 Vital Signs Temperature 97.9 F 01/24/23 23:53 Pulse Rate 69 01/24/23 23:53 Respiratory Rate 16 01/24/23 23:53 Blood Pressure 114/77 01/24/23 23:53 Pulse Oximetry 100 01/24/23 23:53 Oxygen Delivery Method Room Air 01/24/23 23:53 Temperature 97.9 F 01/24/23 23:53 Pulse Rate 69 01/24/23 23:53 Respiratory Rate 16 01/24/23 23:53 Blood Pressure 114/77 01/24/23 23:53 Pulse Oximetry 100 01/24/23 23:53 Oxygen Delivery Method Room Air 01/24/23 23:53 Medical Decision Making MDM Narrative Medical decision making narrative: 37-year-old female with tendonitis. Patient will be placed in a thumb spica and given a Medrol Dosepak. We discussed ibuprofen use as needed. We discussed activity modification. Discussed follow-up with primary care or orthopedics. Patient was in agreement and had no other questions. Discharge Plan Discharge Clinical Impression: Tendinitis Patient Disposition: Home, Self-Care Condition: Stable Additional Instructions: It appears that you have an inflammation of a tendon in the thumb. This is generally caused by repetitive activity or trauma directly on the thumb-this could certainly be caused by caring heavy items. You will be placed in a thumb spica today which will keep the thumb from moving, and you will be given steroid pack to help with the inflammation. Okay to take ibuprofen 400-600 mg every 8 hours on a full stomach as needed for discomfort. This may take several weeks to heal completely. Follow-up with your primary care provider or orthopedics if you are not improving over the next several weeks. Prescriptions: New methylprednisolone [Medrol (Andi)] 4 mg tablets,dose pack See Rx Instructions .ROUTE .COMPLEX Qty: 21 0RF Rx Instructions: orally per package directions Follow Up/Referrals: Mary Fulton MD [Primary Care Provider] - Stand Alone Forms: [employer] Info Instructions
== END 2023-01-25 00:15 | disposition home or self-care (01) ==
LOC: ED 01-25 00:13
PROVIDERS: Emergency Provider Family Medicine; PCP Family Medicine
DX: M65.842 Other synovitis and tenosynovitis, left hand (principal)
CPT/HCPCS: 29130; 99283

== ENCOUNTER 2023-03-01 10:52 | Emergency (ER) | payer MEDICAID, SELFPAY ==
[2023-03-01 11:09] VITALS: BP 132/81; PULSE 74; RESP 16; TEMP 36.7; O2SAT 98; BMI 33.6
[2023-03-01] MEDS: LACTATED RINGERS 1000 ML 1,000 ML IV (14:48)
[2023-03-01] MEDS: KETOROLAC 15 MG/ML inj IVP (14:49)
[2023-03-01] MEDS: METOCLOPRAMIDE HCL 5 MG/ML INJ 10 MG IVP (14:49)
[2023-03-01] MEDS: diphenhydrAMINE 50 MG/ML inj 25 MG IVP (14:49)
[2023-03-01 14:51] LABS: Basophils Absolute Auto 0.01 K/uL (0.00-0.30); Basophils Percent Auto 0.2 % (0.0-3.0); Eosinophils Percent Auto 1.7 % (0.0-7.0); Hematocrit 43.4 % (33.0-51.0); Immature Granulocytes Abs Auto 0.03 K/uL (0.00-0.30); Immature Granulocytes Pct Auto 0.5 %; Lymphocytes Absolute Auto 2.32 K/uL (0.90-2.90); Lymphocytes Percent Auto 38.5 % (20-44); Mean Corpuscular HGB Conc 32 gm/dL (32-36); Mean Corpuscular Hemoglobin 28 pg (26-34); Mean Corpuscular Volume 87 fL (80-100); Monocytes Percent Auto 5.6 % (0.0-11.0); Neutrophils Absolute Auto 3.23 K/uL (1.7-7.0); Neutrophils Percent Auto 53.5 % (42.0-72.0); Platelet Count* 305 K/uL (140-440); RDW Coefficient of Variation % 13.4 % (11.5-15.5); Red Blood Count 5.02 m/uL (4.00-5.20); White Blood Count* 6.03 K/uL (4.50-11.00)
[2023-03-01 15:00] LABS: Slide Review Reflex No
[2023-03-01 15:04] LABS: PCR FLU A Negative PCR FLU A (Negative); PCR FLU B Negative PCR FLU B (Negative)
[2023-03-01 15:07] LABS: Chloride* 105 mmol/L (96-114)
[2023-03-01 15:08] LABS: Sodium* 140 mmol/L (135-149)
[2023-03-01 15:10] LABS: Creatinine* 0.6 mg/dL (0.5-1.5); Est. Creatinine Clearance* 96.87; Estimated Glomerular Filt Rate 118 ml/min
[2023-03-01 15:11] LABS: Anion Gap 9 mEq/L (7-15); Blood Urea Nitrogen* 12 mg/dL (5-24); Calcium* 9.7 mg/dL (8.4-10.6); Carbon Dioxide* 26 mmol/L (20-32); Glucose* 94 mg/dL (60-115)
[2023-03-01 15:23] LABS: Potassium* 4.3 mmol/L (3.6-5.1)
--- NOTE | 2023-03-01 15:25 | ED_ITS ---
HPI - General Adult General Date Seen: 03/01/23 Chief complaint: Headache/Migraine Stated complaint: Headache, bodyaches Time Seen by Provider: 03/01/23 13:54 Source: patient Mode of arrival: ambulatory Limitations: no limitations History of Present Illness HPI narrative: Patient is a 38-year-old female presents to the emergency department for headache. She states the leg is going for the past few days. States it was initially tender area at the top of her head but has since become slightly larger. She also states there is a small area on the top of her head that feels like there is a pressure sensation. She describes it as having a very tight ponytail. Denies any lightheadedness or dizziness and some mild nausea associated with it. She is also having muscle aches so she thought she was having flu-like symptoms. Denies a cough, shortness of breath, chest pain, sore throat, fevers, chills. States she has headaches in the past but this 1 feels different. Related Data Previous Rx's Medication Instructions Recorded ondansetron 4 mg disintegrating 4 mg PO Q6H #20 tabs 03/01/23 tablet Allergies Allergy/AdvReac Type Severity Reaction Status Date / Time No Known Drug Allergies Allergy Verified 03/01/23 11:12 Review of Systems Status of ROS: Reports: 10 or more systems reviewed and unremarkable except as noted in History and below [facility] Social History Smoking Status: Never smoker Do you use any of these nicotine containing products: None How often do you have a drink containing alcohol: 2-4 times a month AUDIT-C Alcohol total score: 2 Non-prescribed substance use: denies use service: No Exam Narrative: Exam Narrative: Const: Well-nourished, Well-developed, in mild distress Eyes: PERRL, no conjunctival injection, and symmetrical lids ENMT: Atraumatic external nose and ears. Moist mucous membranes. Neck: Symmetric, trachea midline, No thyromegaly. CVS: RRR, No murmurs or gallops. Peripheral pulses 2+ and equal in all extremities RESP: Unlabored respiratory effort. Clear to auscultation bilaterally. GI: Nontender/Nondistended, No rebound or guarding. MSK:Extremities w/o deformity, Normal Active ROM Skin: Warm, Dry. No rashes or lesions. Neuro: Normal Muscle tone, No focal neurological deficits. Psych: Awake, Alert, & Oriented x3. Appropriate mood and affect. Const: Vital Signs, click to edit/add: Vital Signs - 24 hr 03/01/23 11:09 Temperature 98.1 F Pulse Rate [Right Pulse Oximeter] 74 Respiratory Rate 16 Blood Pressure [Ri ght Upper Arm] 132/81 Pulse Oximetry 98 Oxygen Delivery Me thod Room Air Course Vital Signs Vital signs: Initial Vital Signs Temperature 98.1 F 03/01/23 11:09 Temperature Source Temporal Artery Scan 03/01/23 11:09 Pulse Rate 74 03/01/23 11:09 Pulse Rhythm Regular 03/01/23 11:09 Respiratory Rate 16 03/01/23 11:09 Blood Pressure 132/81 03/01/23 11:09 Blood Pressure Mean 98 03/01/23 11:09 Blood Pressure Position Sitting 03/01/23 11:09 Pulse Oximetry 98 03/01/23 11:09 Oxygen Delivery Method Room Air 03/01/23 11:09 Vital Signs Temperature 98.1 F 03/01/23 11:09 Pulse Rate 74 03/01/23 11:09 Respiratory Rate 16 03/01/23 11:09 Blood Pressure 132/81 03/01/23 11:09 Pulse Oximetry 98 03/01/23 11:09 Oxygen Delivery Method Room Air 03/01/23 11:09 Temperature 98.1 F 03/01/23 11:09 Pulse Rate 74 03/01/23 11:09 Respiratory Rate 16 03/01/23 11:09 Blood Pressure 132/81 03/01/23 11:09 Pulse Oximetry 98 03/01/23 11:09 Oxygen Delivery Method Room Air 03/01/23 11:09 Medical Decision Making MDM Narrative Medical decision making narrative: Patient is a 38-year-old female presents to emergency department for a headache. She states symptoms have been going on for the past few days. States it feels like she is a type only Karly top of her head. Denies any lightheadedness or dizziness. Had no trauma. This time it seems unlikely to be any kind of hemorrhage or ischemic stroke. She is otherwise asymptomatic other than diffuse body pain. His symptoms sound more viral in nature. Code status fluids ordered. Also ordered BMP and CBC. Migraine cocktail was ordered. Lab work returned all showing no concerning abnormalities. COVID and flu were negative. She feels much better after the medications. At this time she most likely has a headache secondary to a viral syndrome. She is otherwise doing well. Her not believe imaging is necessary and she can be safely discharged she home. Lab Data Labs: Lab Results 03/01/23 03/01/23 Range/Units 14:23 14:36 WBC 6.03 (4.50-11.00) K/uL RBC 5.02 (4.00-5.20) m/uL Hgb 14.0 (12.0-16.0) gm/dL Hct 43.4 (33.0-51.0) % MCV 87 (80-100) fL MCH 28 (26-34) pg MCHC 32 (32-36) gm/dL RDW Coeff of Dominga 13.4 (11.5-15.5) % Plt Count 305 (140-440) K/uL Neut % (Auto) 53.5 (42.0-72.0) % Lymph % (Auto) 38.5 (20-44) % [place] % (Auto) 5.6 (0.0-11.0) % Eos % (Auto) 1.7 (0.0-7.0) % Baso % (Auto) 0.2 (0.0-3.0) % Neut # (Auto) 3.23 (1.7-7.0) K/uL Lymph # (Auto) 2.32 (0.90-2.90) K/uL [place] # (Auto) 0.30 (0.00-0.90) K/UL Eos # (Auto) 0.10 (0.00-0.50) K/uL Baso # (Auto) 0.01 (0.00-0.30) K/uL Abs Immat Gran (auto) 0.03 (0.00-0.30) K/uL Imm/Tot Granulo (auto) 0.5 % Sodium 140 (135-149) mmol/L Potassium 4.3 (3.6-5.1) mmol/L Chloride 105 (96-114) mmol/L Carbon Dioxide 26 (20-32) mmol/L Anion Gap 9 (7-15) mEq/L BUN 12 (5-24) mg/dL Creatinine 0.6 (0.5-1.5) mg/dL Estimated Creat Clear 96.87 Estimated GFR 118 ml/min Glucose 94 (60-115) mg/dL Calcium 9.7 (8.4-10.6) mg/dL SARS-CoV-2 (PCR) Negative SARS-CoV-2 (Negative) Influenza Type A (PCR) Negative PCR FLU A (Negative) Influenza Type B (PCR) Negative PCR FLU B (Negative) Discharge Plan Discharge Clinical Impression: Headache Qualifiers: Headache type: unspecified Headache chronicity pattern: acute headache Intractability: not intractable Qualified Code(s): R51.9 - Headache, unspecified Patient Disposition: Home, Self-Care Condition: Stable Instructions: Acute Headache (DC) Additional Instructions: If your symptoms continue you can follow up with the primary care provider. Return for new or worsening symptoms. Take the Zofran as needed for nausea. Take Tylenol and ibuprofen for pain. The symptoms might be related to a viral syndrome Prescriptions: New ondansetron 4 mg tablet,disintegrating 4 mg PO Q6H Qty: 20 0RF Follow Up/Referrals: Mary Fulton MD [Primary Care Provider] - Stand Alone Forms: [employer] Info Instructions
[2023-03-01 15:36] LABS: SARS PCR* Negative SARS-CoV-2 (Negative)
== END 2023-03-01 16:07 | disposition home or self-care (01) ==
PROVIDERS: Emergency Provider Student in an Organized Health Care Education/Training Program; PCP Family Medicine
DX: R51.9 Headache, unspecified (principal)
CPT/HCPCS: 36415; 80048; 85025; 87631; 96374; 96375; 99283; 99284; J1200; J1885; J2765; J7120

== ENCOUNTER 2023-09-21 19:49 | Emergency (ER) | payer OTHER, MEDICAID, SELFPAY ==
[2023-09-21 20:07] VITALS: BP 135/80; PULSE 83; RESP 16; O2SAT 97; BMI 33.6
--- NOTE | 2023-09-21 20:22 | XR_ITS ---
Patient: PERCY KLEIN Facility:?[facility] Patient ID:?[id number] Site Patient ID:?[id number]. Site :?1985 Study:?XRay-Knee Left 3V-09/21/2023 9:26:54 PM Ordering Physician:DON Final Report: Indication: Severe knee pain. Technique: Three views of the left knee. Comparison: None Findings/Impression: On lateral view, there is a deep lateral femoral notch, concerning for component of ACL tear. Small fabella is noted. Trace knee joint effusion. Mild edema within the infrapatellar fat pad. Slight lateral patellar tilt. Dictated by Skip Sofia MD @ 09/21/2023 10:31:28 PM Signed by:?Skip Sofia MD @09/21/2023 10:31:28 PM (Electronic Signature)
--- NOTE | 2023-09-21 20:24 | ED_ITS ---
HPI - Extremity Injury (Lower) General Date Seen: 09/21/23 Chief Complaint: Extremity Pain/Injury, Lower Stated Complaint: Left knee pain Time Seen by Provider: 09/21/23 19:50 Source: patient Mode of arrival: ambulatory Limitations: no limitations History of Present Illness HPI Narrative: Patient is a 38-year-old female with no pertinent medical problems presenting with left knee pain. She states the knee pain is a gone for few days but has been getting progressively more consistent and painful. Has been taking ibuprofen for pain with minimal improvement in her symptoms. Now she states whenever she moves the knee it hurts. Does not remember any injuries to the knee. Denies numbness or weakness to the left lower extremity. No other concerns noted. Related Data Previous Rx's Medication Instructions Recorded ondansetron 4 mg disintegrating 4 mg PO Q6H #20 tabs 03/01/23 tablet Allergies Allergy/AdvReac Type Severity Reaction Status Date / Time No Known Drug Allergies Allergy Verified 03/01/23 11:12 Review of Systems Narrative: Pertinent systems reviewed and were negative unless stated in HPI PFSH PFSH Social History Smoking Status: Never smoker Do you use any of these nicotine containing products: None How often do you have a drink containing alcohol: 2-4 times a month AUDIT-C Alcohol total score: 2 Non-prescribed substance use: denies use service: No Exam Narrative: Exam Narrative: Const: Well-nourished, Well-developed, in mild distress Eyes: PERRL, no conjunctival injection, and symmetrical lids HENT: Atraumatic external nose and ears. Moist mucous membranes. CV: Pulses +2 dorsalis pedis bilateral, no lower extremity edema MSK:Extremities w/o deformity, pain with movement of the left knee, tenderness to palpation medial joint line Skin: Warm, Dry. No rashes or lesions. Neuro: Normal Muscle tone, No focal neurological deficits. Psych: Awake, Alert, & Oriented x3. Appropriate mood and affect. Const: Vital Signs, click to edit/add: Vital Signs - 24 hr 09/21/23 20:07 Pulse Rate [Right Pulse Oximeter] 83 Respiratory Rate 16 Blood Pressure [Ri ght Upper Arm] 135/80 Pulse Oximetry 97 Oxygen Delivery Me thod Room Air Course Vital Signs Vital signs: Initial Vital Signs Pulse Rate 83 04/02/24 20:07 Pulse Rhythm Regular 09/21/23 20:07 Pulse Strength 3+ Normal 09/21/23 20:07 Respiratory Rate 16 09/21/23 20:07 Blood Pressure 135/80 09/21/23 20:07 Blood Pressure Mean 98 09/21/23 20:07 Blood Pressure Position Sitting 09/21/23 20:07 Pulse Oximetry 97 09/21/23 20:07 Oxygen Delivery Method Room Air 09/21/23 20:07 Vital Signs Pulse Rate 83 09/21/23 20:07 Respiratory Rate 16 09/21/23 20:07 Blood Pressure 135/80 09/21/23 20:07 Pulse Oximetry 97 09/21/23 20:07 Oxygen Delivery Method Room Air 09/21/23 20:07 Pulse Rate 83 09/21/23 20:07 Respiratory Rate 16 09/21/23 20:07 Blood Pressure 135/80 09/21/23 20:07 Pulse Oximetry 97 09/21/23 20:07 Oxygen Delivery Method Room Air 09/21/23 20:07 Medications Administered Medications: Discontinued Medications Generic Name Dose Route Start Last Admin Trade Name Freq PRN Reason Stop Dose Admin Oxycodone HCl 5 mg 09/21/23 20:22 09/21/23 20:26 Oxycodone 5 Mg Tablet PO 09/21/23 20:23 5 mg ONCE ONE Administration MDM - Extremity Injury (Lower) MDM Narrative Medical decision making narrative: Patient is a 38-year-old female presenting for left knee pain. She is tender to the medial joint line. X-ray will be ordered. She is not remember injuring the knee at all. Been gradually getting worse for the past few days. Oxycodone was given for pain. X-ray returned showing a concern for possible ACL tear. This seems odd considering she does not remember injuring her knee. It why our will put her in a knee immobilizer and have her follow-up with orthopedics. She is agreeable to this plan. Imaging Data Left knee x-ray: Attestation: I have reviewed the pertinent imaging results. Radiologist's impression: On lateral view, there is a deep lateral femoral notch, concerning for component of ACL tear. Small fabella is noted. Trace knee joint effusion. Mild edema within the infrapatellar fat pad. Slight lateral patellar tilt. Dictated by Skip Sofia MD @ 09/21/2023 10:31:28 PM Discharge Plan Discharge Clinical Impression: Knee pain, left Qualifiers: Chronicity: acute Qualified Code(s): M25.562 - Pain in left knee Patient Disposition: Home, Self-Care Condition: Stable Instructions: Knee Pain (ED) Additional Instructions: Wear the knee immobilizer for comfort. Take Tylenol and ibuprofen for pain. Follow-up with orthopedic clinic and [place]. Call their number at [phone] schedule an appointment. Call in the morning. Prescriptions: No Action ondansetron 4 mg tablet,disintegrating 4 mg PO Q6H Qty: 20 0RF Follow Up/Referrals: Mary Fulton MD [Primary Care Provider] - Stand Alone Forms: [id number] Info Instructions
[2023-09-21] MEDS: OXYCODONE 5 MG TABLET PO (20:26)
== END 2023-09-21 22:55 | disposition home or self-care (01) ==
PROVIDERS: Emergency Provider Student in an Organized Health Care Education/Training Program; PCP Family Medicine
DX: M25.562 Pain in left knee (principal)
CPT/HCPCS: 73562; 99282; 99283; A9270

== ENCOUNTER 2023-10-11 15:32 | Outpatient (CLI) | payer OTHER, SELFPAY ==
--- NOTE | 2023-10-11 15:30 | MR_ITS ---
[facility] [address] [facility] [address] Phone:?[phone] Fax:?[phone] Referring Physician Information: Alvaro Gonzalez [address] [facility] [address] Phone:?[phone] Fax:?[phone] Patient:Danial Gallardo D.O.B:?1985 Sex:?Female Phone:?[phone] [facility] MRN:?[id number] Exam Date:?10/11/2023 EXAM: MRI of the LEFT KNEE, without contrast CLINICAL HISTORY: Left knee pain. Work injury. Medial collateral ligament sprain, medial meniscal tear. COMPARISONS: Plain radiographs 09/21/2023. TECHNICAL: MR sequences of the left knee: sagittals: PD, PDFS coronals: PD, STIR axials: PD, T2 FS CONTRAST: None SEDATION: None FINDINGS: Bones: No fracture, bone marrow contusion, or other suspicious bone marrow signal abnormality. Patellofemoral joint: Cartilage: Intact. Retinacula: The medial and lateral retinacula are intact. Fat pads: The infrapatellar, quadriceps, and prefemoral fat pads are unremarkable. Knee joint: Effusion: Physiologic amount of joint fluid. Popliteal cyst: Tiny popliteal cyst. Intra-articular bodies: None. Posteromedial corner: The semimembranosus and pes anserine tendons are intact. Medial compartment: Medial meniscus: Intact. Cartilage: Intact. Lateral compartment: Lateral meniscus: Intact. Cartilage: Intact. Ligaments: Anterior cruciate ligament: Intact. Posterior cruciate ligament: Intact. Medial collateral ligament: Intact. Posterior oblique ligament: Intact. Fibular collateral ligament: Intact. Posterolateral corner: The distal biceps femoris tendon, iliotibial band, popliteus tendon, popliteus muscle, popliteofibular ligament, and arcuate ligament are intact. Extensor mechanism: Patellar tendon: Intact. Quadriceps tendon: Intact. IMPRESSION: 1. Tiny popliteal cyst. 2. Otherwise, unremarkable MRI of the left knee without ligamentous, tendinous, meniscal, or chondral pathology. RCB Electronically signed on 10/12/2023 9:19:00 AM by Yunier Reese M.D.
--- OUTSIDE RECORDS SUMMARY | 2023-10-11 15:35 | XMS_ITS | Clinical Summary ---
Author Name Unknown Organization [facility] Address [place], [place] [address] Care Team Providers Care Director [employer] Name Role Phone Mary Fulton MD Primary Care Provider Allergies No known active allergies Medications Medication Sig Dispensed Refills Start Date End Date Status triamcinolone (ARISTOCORT; KENALOG) 0.1 % creamIndications:Be e sting, accidental or unintentional, initial encounter,Allergic reaction to bee sting Apply topically to affected area(s) three times daily. 45 g 03/17/2022 Active ketorolac (TORADOL) 10 mg tablet 08/13/2022 Active cyclobenzaprine (FLEXERIL) 10 mg tablet 08/13/2022 Active FLUoxetine (PROZAC) 20 mg capsuleIndications: Anxiety Take 1 Capsule (20 mg) by mouth every morning. 30 Capsule 1 06/04/2023 Active Active Problems Problem Noted Date Diagnosed Date Moderate episode of recurrent major depressive d isorder 02/28/2016 Endometriosis 02/06/2015 Eczema, dyshidrotic 08/06/2014 Resolved Problems Problem Noted Date Diagnosed Date Resolved Date Supervision of other normal 09/07/2007 06/22/2014 Encounters Date Type Department Care Team Description 09/21/2023 Orders Only [facility] Scanner 1 scan: (1-Ord) [place], LT KNEE 3 VIEWS, 09/21/2023 from Last 3 Months Immunizations Name Administration Dates Next Due Influenza, IIV3 (Age >=3 years) 05/05/2010,04/12 Tdap 07/14/2019,09/28/2009 Family History Medical History Relation Name Comments ADD / ADHD Brother Good Health Father Diabetes Maternal Grandmother Good Health Mother Cancer Paternal Grandfather unknown Other Paternal Grandfather from COVID Diabetes Paternal Grandmother Mental illness Sister Relation Name Status Comments Brother Father Alive Maternal Grandmother Mother Alive Paternal Grandfather Paternal Grandmother Sister Social History Tobacco Use Types Packs/Day Years Used Date Smoking Tobacco: Never Passive Smoke Exposure: Never Smokeless Tobacco: Never Tobacco Cessation:Counseling Given: Not Answered Alcohol Use Standard Drinks/Week Comments Not Currently 0 (1 standard drink = 0.6 oz pur e alcohol) 2 x per week PHQ-2 Answer Date Recorded PHQ-2 TOTAL SCORE 5 08/24/2022 Social Connections Answer Date Recorded Frequency of Communication with Friends and Fami ly Not on file 11/06/2022 Financial Resource Strain Answer Date R ecorded Difficulty of Paying Living Expenses 3 11/04/2021 Difficulty of Paying Living Expenses Not on file 11/04/2021 Food Insecurity Answer Date Recorded Worried About Running Out of Food in the Last Ye ar 1 11/04/2021 Transportation Needs Answer Date Record ed Lack of Transportation (Medical) 1 11/04/2021 Housing Stability Answer Date Recorded Unable to Pay for Housing in the Last Year 1 11/04/2021 Sex and Gender Information Value Date Recorded Sex Assigned at Not on file Gender Identity Not on file Sexual Orientation Not on file Obstetrics History Para Term AB IAB SAB Ectopic Multiple Livin g Live Births 4 4 2 1 0 0 0 0 4 Date Outcome GA Total Labor Labor/2nd/3rd Weight Sex Delivery Anes PTL Dominga A1 A5 Name Cl in Term Term Para Last Filed Vital Signs Vital Sign Reading Time Taken Comments Blood Pressure 121/77 08/24/2022 11:08 AM [employer] Pulse 81 08/24/2022 11:08 AM [employer] REGENERATOR Temperature 36.8 ??C (98.2 ??F) 08/04/2022 2:04 PM CS T Respiratory Rate 16 10/08/2010 6:30 PM CDT Oxygen Saturation 97% 08/24/2022 11:08 AM [employer]ENERATOR Inhaled Oxygen Concentration - - Weight 80.3 kg (177 lb) 08/24/2022 11:08 AM B[employer] REGENERATOR Height 154 cm (5' 0.63) 08/24/2022 11:08 AM [employer] REGENERATOR Body Mass Index 33.85 08/24/2022 11:08 AM BUSH REGENERATOR Plan of Treatment Health Maintenance Due Date Last Done Comments Hepatitis C screening for age 18-79 01/31/2004 Pap test for age 21-65 02/27/2021 6, 02/28/2016, 10/19/2013, Additional history exists COVID-19 vaccine series ( season) 2023 02/17/2021 BMI (ht and wt on same day) for age 18+ 08/25/2023 08/24/2022, 02/26/2021, 02/25/2021, Additional history exists Depression screening for age 12+ 08/25/2023 08/24/2022, 07/14/2019, 02/14/2018, Additional history exists Influenza for age 9-49 02/20/2024 05/05/2010, 2007 Tetanus booster 07/14/2029 07/14/2019, 09/28/2009 HIV for age 15-65 Completed 03/17/2013, 09/07/2007 Tdap Completed 07/14/2019, 09/28/2009 Pneumococcal series for age 6-64 Aged Out No longer eligible based on patient's age to complete this topic Procedures Procedure Name Priority Date/Time Associated Diagnosis Comments SCAN-RADIOLOGY REPORT 09/21/2023 12:00 AM CDT RN ANTE PARTUM THIN PREP PAP SCREEN IMAGED Routine 02/28/2016 11:37 AM CDT Cervical cancer screening ANTI HIV 1/2 Routine 03/17/2013 10:31 AM CDT Screen for STD (sexually transmitted disease) from Last 3 Months or Most Recently Relevant to Health Maintenance Results * SCAN-RADIOLOGY REPORT (09/21/2023 12:00 AM CDT) Anatomical Region Laterality Modality Other Scanner OTHER * RN ANTE PARTUM THIN PREP PAP SCREEN IMAGED (02/28/2016 11:37 AM CDT) RN ANTE PARTUM CYTOLOGY See Anatomic Pathology case 02/29/2016 12:00 PM CDT [facility] Other (Cervical) Non-Blood / Unknown 02/28/2016 11:37 AM CDT 02/28/2016 11:38 AM CDT Mary Fulton MD PATHOLOGY/CYTOL OGY [facility] [address] [place] [address], * ANTI HIV 1/2 (03/17/2013 10:31 AM CDT) ANTI HIV 1/2 Non-reacti ve [facility] Blood specimen (specimen) BLOOD SPECIMEN / Unknown 03/17/2013 10:31 AM CDT 03/17/2013 10:26 AM CDT Julia MCDOWELL SEND OUTS [facility] INTERNAL ZIP [id number] [place] [address] from Last 3 Months or Most Recently Relevant to Health Maintenance Advance Directives * Full Code (Latest Code Status on File) Date Activated Date Inactivated Comments 10/08/2010 9:24 AM 10/08/2010 9:56 PM * Full Code Date Activated Date Inactivated Comments 09/26/2009 2:13 AM 09/28/2009 2:12 PM * Full Code Date Activated Date Inactivated Comments 09/21/2009 6:08 PM 09/22/2009 2:04 AM * Full Code Date Activated Date Inactivated Comments 09/20/2009 10:26 AM 09/20/2009 4:56 PM * Full Code Date Activated Date Inactivated Comments 09/06/2009 8:11 AM 09/06/2009 12:17 PM Care Teams Director [employer] Relationship Specialty Start Date End Date Mary Fulton MD [address] [place] [address] PCP - General Family Practice 02/28/16
== END 2023-10-11 15:33 | disposition home or self-care (01) ==
LOC: MRI 15:33
PROVIDERS: PCP Family Medicine; Visit Provider Physician Assistant Surgical
DX: M25.562 Pain in left knee (principal); M71.22 Synovial cyst of popliteal space [Baker], left knee
CPT/HCPCS: 73721

== ENCOUNTER 2023-12-02 11:00 | Outpatient (RCR) | payer OTHER, SELFPAY | END 2024-02-25 11:29 | disposition home or self-care (01) | PROVIDERS: PCP Family Medicine; Visit Provider Physician Assistant Surgical | DX: M25.562 Pain in left knee (principal); Z51.89 Encounter for other specified aftercare | CPT/HCPCS: 97110; 97140; 97161 ==

== ENCOUNTER 2025-03-25 12:38 | Emergency (ER) | payer OTHER, SELFPAY ==
--- OUTSIDE RECORDS SUMMARY | 2025-03-25 12:40 | XMS_ITS | Clinical Summary ---
Author Organization [facility] Address [address] [place] [id number] Care Team Providers Care Ring Conductor Name Role Phone Mary Fulton MD Primary Care Provider Allergies No known active allergies Medications triamcinolone (ARISTOCORT; KENALOG) 0.1 % creamIndication s:Bee sting, accidental or unintentional, initial encounter,Aller gic reaction to bee sting Apply topically to affected area(s) three times daily. 45 g 2 Active Active Problems Problem Noted Date Diagnosed Date Incidental lung nodule, > 3mm and < 8mm 01/18/20 Overview (01/17/2025): Seen on CT Abd/Pelv December 2024 Cervical cancer screening 11/07/2024 Overview (11/07/2024): 10/2024 NIL/HPV negative Plan: Pap and HPV due 10/2029 Moderate episode of recurrent major depressive d isorder 02/28/2016 Endometriosis 02/06/2015 Eczema, dyshidrotic 08/06/2014 Resolved Problems Problem Noted Date Diagnosed Date Resolved Date Supervision of other normal 09/07/2007 06/22/2014 Encounters Date Type Department Care Team Description 01/17/2025 Telephone [facility] [address] [address] Maryam Abdi, DO Results 01/16/2025 3:30 PM CDT Ancillary Procedure [facility] [address] [place] [address] 01/16/2025 2:10 PM CDT Office Visit [facility] [address] [facility] [address] Maryam Abdi, DO Abdominal Pain (Abdominal/pelvic pain x10 days - comes/goes at first, now constant, nausea with shooting pain, bloating/pressure, fatigue ) 01/16/2025 Travel 01/15/2025 Nurse Triage [facility] [address] [place] [address] Mary Fulton MD Abdominal Pain from Last 3 Months Immunizations Immunization Administration Dates Next Due Influenza, IIV3 (Age [...] 5 08/24/2022 Social Connections Answer Date Recorded Do you often feel lonely or isolated from those around you? 0 01/16/2025 Financial Resource Strain Answer Date R ecorded Difficulty of Paying Living Expenses 3 01/16/2025 Difficulty of Paying Living Expenses Not on file 01/16/2025 Food Insecurity Answer Date Recorded Do you worry your food will run out before you are able to buy more? 1 01/16/2025 Transportation Needs Answer Date Record ed Does lack of transportation keep you from medica l appointments? 1 01/16/2025 Does lack of transportation keep you from work, meetings or getting things that you need? 1 01/16/2025 Housing Stability Answer Date Recorded What is your housing situation today? 1 01/16/2025 Utilities Answer Date Recorded Do you have trouble paying f or utilities (for example, heat, electricity, water, phone)? 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 Not on file Not on file Not on file Obstetrics History Para Term AB IAB SAB Ectopic Multiple Livin g Live Births 4 4 2 1 0 0 0 0 4 Date Outcome GA Total Labor Labor/2nd/3rd Weight Sex Type Anes PTL Dominga A1 A5 Name Clin Term Term Para Last Filed Vital Signs Vital Sign Reading Time Taken Comments Blood Pressure 118/73 01/16/2025 2:19 PM CDT Pulse 63 01/16/2025 2:19 PM CDT Temperature 36.8 C (98.2 F) 08/04/2022 2:04 PM [employer] Respiratory Rate 16 10/08/2010 6:30 PM CDT Oxygen Saturation 99% 01/16/2025 2:19 PM CDT Inhaled Oxygen Concentration - - Weight 77.7 kg (171 lb 3.2 oz) 01/16/2025 2:19 P M CDT Height 155.5 cm (5' 1.22) 10/20/2024 3:22 PM CD T Body Mass Index 32.12 10/20/2024 3:22 PM CDT Plan of Treatment Health Maintenance Due Date Last Done Comments Hepatitis B series for 19+ (1 of 3 - 19+ 3-dose series) 2005 HPV series for age 9-45 (1 - 3-dose SCDM series) 2013 Depression screening for age 12+ 08/25/2023 08/24/2022, 07/14/2019, 02/14/2018, Additional history exists COVID-19 vaccine series (2024- season) 2025 02/17/2021 Influenza Vaccine (#1) 2025 05/05/2010, 2007 BMI (ht and wt on same day) for age 18+ 10/20/2025 10/20/2024, 08/24/2022, 02/26/2021, Additional history exists Tetanus booster 07/14/2029 07/14/2019, 09/28/2009 Pap test for age 21-65 10/20/2029 , 10/20/2024, 02/28/2016, Additional history exists RSV vaccine for adults or (1 - 1-dose 75+ series) 2061 HIV for age 15-65 Completed 10/20/2024, , 09/07/2007 Hepatitis C screening for age 18-79 Completed 10/20/2024 Pneumococcal series for age 6-49 Aged Out No longer eligible based on patient's age to complete this topic Procedures Procedure Name Priority Date/Time Associated Diagnosis Comments CT ABDOMEN PELVIS W MOUSTAPHA 01/16/2025 3 :58 PM CDT Abdominal pain, LLQ (left lower quadrant) Nausea and vomiting, unspecified vomiting type URINALYSIS MICROSCOPIC Routine 01/16/2025 3:18 PM CDT Abdominal pain, LLQ (left lower quadrant) Nausea and vomiting, unspecified vomiting type URINALYSIS MACROSCOPIC - [facility] ONLY POC DIP ([facility]) Routine 01/16/2025 3:18 PM CDT Abdominal pain, LLQ (left lower quadrant) Nausea and vomiting, unspecified vomiting type HEPATIC FUNCTION PANEL Routine 01/16/2025 3:14 PM CDT Abdominal pain, LLQ (left lower quadrant) Nausea and vomiting, unspecified vomiting type CBC WITH AUTO DIFFERENTIAL Routine 01/16/2025 3:14 PM CDT Abdominal pain, LLQ (left lower quadrant) Nausea and vomiting, unspecified vomiting type C-REACTIVE PROTEIN Routine 01/16/2025 3: 14 PM CDT Abdominal pain, LLQ (left lower quadrant) Nausea and vomiting, unspecified vomiting type HPV HIGH RISK Routine 10/20/2024 4:11 PM CDT Cervical cancer screening ANTI HIV 1/2 Routine 10/20/2024 3:59 PM CDT Routine screening for STI (sexually transmitted infection) ANTI HCV Routine 10/20/2024 3:59 PM CDT Need for hepatitis C screening test from Last 3 Months or Most Recently Relevant to Health Maintenance Results * CT ABDOMEN PELVIS W (01/16/2025 3:58 PM CDT) Anatomical Region Laterality Modality Abdomen, Pelvis, AORTA, LIVER, SPLEEN Computed Tomography 01/17/2025 10:3 5 AM CDT Impressions 01/17/2025 10:35 AM CDT 1. No acute intra-abdominal pathology. Please note that all CT scans at this facility use dose modulation, iterative reconstruction, and/or weight-based dosing when appropriate to reduce radiation dose to as low as reasonably achievable. Dictated by Federico Jackson MD @ 01/17/2025 10:35:36 AM (Electronically Signed) Narrative 01/17/2025 10:35 AM CDT For Patients: As a result of the Cures Act, medical imaging exams and procedure reports are released immediately into your electronic medical record. You may view this report before your referring provider. If you have questions, please contact your health care provider. INDICATION: Left lower quadrant abdominal pain. Concern for diverticulitis. TECHNIQUE: CT abdomen and pelvis acquired with 100 cc Omnipaque 350 intravenous contrast. Coronal and sagittal reformats were obtained. COMPARISON: CT abdomen/pelvis from 05/29/2016. FINDINGS: Lower chest: 7 millimeter pleural-based nodule at the right posterior lung base. Lung bases are otherwise clear. Liver: Within normal limits. Spleen: Within normal limits. Pancreas: Within normal limits. Gallbladder and bile ducts: Within normal limits. Kidneys: Within normal limits. Adrenal glands: Within normal limits. Bowel: Within normal limits. Vascular: Within normal limits. Lymph nodes: Within normal limits. Peritoneum: Within normal limits. Pelvis: 1.6 centimeter cystic structure right vaginal wall or cervix cyst. Multiple cysts within the uterine wall. Multiple ovarian follicles. Bones: Within normal limits. Procedure Note Federico Jackson MD - 01/17/2025 For Patients: As a result of the Cures Act, medical imagingexams and procedure reports are released immediately into your electronicmedical record. You may view this report before your referring provider.If you have questions, please contact your health care provider. INDICATION: Left lower quadrant abdominal pain. Concern for diverticulitis. TECHNIQUE: CT abdomen and pelvis acquired with 100 cc Omnipaque 350 intravenouscontrast. Coronal and sagittal reformats were obtained. COMPARISON: CT abdomen/pelvis from 05/29/2016. FINDINGS: Lower chest: 7 millimeter pleural-based nodule at the right posterior lungbase. Lung bases are otherwise clear. Liver: Within normal limits. Spleen: Within normal limits. Pancreas: Within normal limits. Gallbladder and bile ducts: Within normal limits. Kidneys: Within normal limits. Adrenal glands: Within normal limits. Bowel: Within normal limits. Vascular: Within normal limits. Lymph nodes: Within normal limits. Peritoneum: Within normal limits. Pelvis: 1.6 centimeter cystic structure right vaginal wall or cervixcyst. Multiple cysts within the uterine wall. Multiple ovarian follicles. Bones: Within normal limits. IMPRESSION: 1. No acute intra-abdominal pathology. Please note that all CT scans at this facility use dose modulation,iterative reconstruction, and/or weight-based dosing when appropriate toreduce radiation dose to as low as reasonably achievable. Dictated by Federico Jackson MD @ 01/17/2025 10:35:36 AM (Electronically Signed) us Maryam Dominga Shaqra DO CT Final Result * (ABNORMAL) POCT Urinalysis Dipstick Only [[id number]] (01/16/2025 3:18 PM CDT) PH 6.0 5.0 - 8.0 [facility] SPECIFIC GRAVITY 1.025 1.001 - 1.035 [facility] GLUCOSE TRACE(A) NEGATIVE [facility] BILIRUBIN NEGATIVE NEGATIVE [facility] KETONES NEGATIVE NEGATIVE [facility] OCCULT BLOOD NEGATIVE NEGATIVE [facility] PROTEIN NEGATIVE NEGATIVE [facility] NITRITE NEGATIVE NEGATIVE [facility] LEUKOCYTE ESTERASE NEGATIVE NEGATIVE [facility] Urine URINE SPECIMEN / Unknown 01/16/2025 3:18 PM CDT 01/16/2025 3:19 PM CDT Maryam Abdi DO URINE Final Result [facility] [address] [place] [address], [place] [phone] [facility] [address] [place] [address] * URINALYSIS MICROSCOPIC [99044.1] - routine (01/16/2025 3:18 PM CDT) RBC 0-2 0-2, None Seen /HPF 01/16/2025 11:27 PM CDT [facility] WBC 0-2 0-2, 3-5, None Seen /HPF 01/16/2025 11:27 PM CDT [facility] BACTERIA None Seen None Seen, Rare, Few Bacteria/ HPF 01/16/2025 11:27 PM CDT [facility] EPITHELIAL CELLS None Seen None Seen, Few Epi/HPF 01/16/2025 11:27 PM CDT [facility] HYALINE CASTS 0-2 0-2, 3-5 /LPF 01/16/2025 11:27 PM CDT [facility] Urine URINE SPECIMEN / Unknown Non-Blood / Unknown 01/16/2025 3:18 PM CDT 01/16/2025 3:18 PM CDT Maryam Abdi DO URINE Final Result [facility] [address] [place] [address], * C-REACTIVE PROTEIN (01/16/2025 3:14 PM CDT) C-REACTIVE PROTEIN (MG/L) <3.0 <8.0 mg/L [facility] Blood BLOOD SPECIMEN / Unknown 01/16/2025 3:14 PM CDT 01/16/2025 3:14 PM CDT us Maryam Abdi DO CHEMISTRY Final Result [facility] [address] [place] [address], [facility] [address] [place] [address] * (ABNORMAL) CBC AND DIFFERENTIAL (01/16/2025 3:14 PM CDT) Pathologist [facility] WHITE BLOOD CELL COUNT 5.9 3.8 - 10.8 Thousand/u L [facility] RED BLOOD CELL COUNT 4.65 3.80 - 5.10 Million/uL [facility] HEMOGLOBIN 12.9 11.7 - 15.5 g/dL [facility] HEMATOCRIT 40.1 35.0 - 45.0 % [facility] MCV 86.2 80.0 - 100.0 fL [facility] MCH 27.7 27.0 - 33.0 pg [facility] MCHC 32.2 32.0 - 36.0 g/dL [facility] Comment: For adults, a slight decrease in the calculated MCHC value (in the range of 30 to 32 g/dL) is most likely not clinically significant; however, it should be interpreted with caution in correlation with other red cell parameters and the patient's clinical condition. RDW 15.1(H) 11.0 - 15.0 % [facility] PLATELET COUNT 307 140 - 400 Thousand/u L [facility] MPV 11.7 7.5 - 12.5 fL [facility] ABSOLUTE NEUTROPHILS 3,127 1,500 - 7,800 cells/uL [facility] ABSOLUTE LYMPHOCYTES 2,260 850 - 3,900 cells/uL [facility] ABSOLUTE MONOCYTES 354 200 - 950 cells/uL [facility] ABSOLUTE EOSINOPHILS 118 15 - 500 cells/uL [facility] ABSOLUTE BASOPHILS 41 0 - 200 cells/uL [facility] NEUTROPHILS 53 % [facility] LYMPHOCYTES 38.3 % [facility] MONOCYTES 6.0 % [facility] EOSINOPHILS 2.0 % [facility] BASOPHILS 0.7 % [facility] Blood BLOOD SPECIMEN / Unknown 01/16/2025 3:14 PM CDT 01/16/2025 3:14 PM CDT [facility] Dominga Trinidad DO HEMATOLOGY Final Result Performing Organization Address City/State/[facility] Co de Phone Number [facility] [address] [place] [address], [facility] [address] [place] [address] * LIVER PANEL (HEPATIC FUNCTION PANEL) (01/16/2025 3:14 PM CDT) Pathologist [facility] PROTEIN, TOTAL 7.1 6.1 - 8.1 g/dL [facility] ALBUMIN 4.0 3.6 - 5.1 g/dL [facility] GLOBULIN 3.1 1.9 - 3.7 g/dL (calc) [facility] ALBUMIN/GLOBULIN RATIO 1.3 1.0 - 2.5 (calc) [facility] BILIRUBIN, TOTAL 0.2 0.2 - 1.2 mg/dL [facility] BILIRUBIN, DIRECT 0.0 < OR = 0.2 mg/dL [facility] BILIRUBIN, INDIRECT 0.2 0.2 - 1.2 mg/dL (calc) [facility] ALKALINE PHOSPHATASE 94 31 - 125 U/L [facility] AST 16 10 - 30 U/L [facility] ALT 15 6 - 29 U/L [facility] Blood BLOOD SPECIMEN / Unknown 01/16/2025 3:14 PM CDT 01/16/2025 3:14 PM CDT [facility] Dominga Trinidad DO CHEMISTRY Final Result [facility] [address] [place] [address], [facility] [address] [place] [address] * HPV HIGH RISK (10/20/2024 4:11 PM CDT) TYPE 16 Negative Negative 10/25/2024 12:23 PM CDT [facility] TYPE 18 Negative Negative 10/25/2024 12:23 PM CDT [facility] OTHER HIGH RISK TYPES Negative Negative 10/25/2024 12:23 PM CDT [facility] Other (Cervical) Non-Blood / Unknown 10/20/2024 4:11 PM CDT 10/23/2024 9:51 AM CDT [facility] - 10/25/2024 12:23 PM CDT HPV types 16, 18, 31, 33, 35, 39, 45, 51, 52, 56, 58, 59, 66 and 68 DNA were undetectable or below the pre-set threshold. Methodology: Pop Cici 4800 HPV Test Alanis Edge DO MICROBIOLOGY Final Result Performing Organization Address City/[facility]/ZIP Co de Phone Number [facility] [address] [place] [address], * ANTI HCV (10/20/2024 3:59 PM CDT) HEPATITIS C ANTIBODY NON-REACTI VE NON-REACT LAKSHMI [facility] Comment: HCV antibody was non-reactive. There is no laboratory evidence of HCV infection. In most cases, no further action is required. However, if recent HCV exposure is suspected, a test for HCV RNA (test code 50926) is suggested. For additional information please refer to http://education.[employer]/faq/GWY14t1 (This link is being provided for informational/ educational purposes only.) Blood BLOOD SPECIMEN / Unknown 10/20/2024 3:59 PM CDT 10/20/2024 4:01 PM CDT Narrative [facility] - 10/23/2024 1:13 PM CDT FASTING:NO FASTING: NO Alanis Edge DO SEND OUTS Final Result Performing Organization Address [facility]/State/ZIP Co de Phone Number [facility] [address] [place] [address], [facility] [address] [place] [address] * ANTI HIV 1/2 (10/20/2024 3:59 PM CDT) Pathologist [facility] HIV AG/AB, 4TH GEN NON-REACT LAKSHMI NON-REACT LAKSHMI [facility] Comment: HIV-1 antigen and HIV-1/HIV-2 antibodies were not detected. There is no laboratory evidence of HIV infection. PLEASE NOTE: This information has been disclosed to you from records whose confidentiality may be protected by state law. If your state requires such protection, then the state law prohibits you from making any further disclosure of the information without the specific written consent of the person to whom it pertains, or as otherwise permitted by law. A general authorization for the release of medical or other information is NOT sufficient for this purpose. For additional information please refer to http://education.[employer]/faq/CIH373 (This link is being provided for informational/ educational purposes only.) The performance of this assay has not been clinically validated in patients less than 2 years old. Blood BLOOD SPECIMEN / Unknown 10/20/2024 3:59 PM CDT 10/20/2024 4:01 PM CDT Narrative [facility] - 10/23/2024 1:13 PM CDT FASTING:NO FASTING: NO Alanis Egde DO SEND OUTS Final Result [facility] [address] [facility] [place] [place] [address], [facility] [address] [place] [address] from Last 3 Months or Most Recently [...] 8:11 AM 09/06/2009 12:17 PM Care Teams Ring Conductor Relationship Specialty Start Date End Date Mary Fulton MD PCP - General Family Practice 02/28/16
[2025-03-25 12:49] VITALS: BP 116/77; PULSE 83; RESP 16; TEMP 36.8; O2SAT 98; BMI 32.3
--- NOTE | 2025-03-25 13:22 | ED_ITS ---
HPI - Abdominal Pain General Date Seen: 03/25/25 Chief Complaint: Abdominal Pain Stated Complaint: Stomache pains Time Seen by Provider: 03/25/25 12:47 Source: patient Mode of arrival: ambulatory Limitations: no limitations History of Present Illness HPI narrative: Patient is a 40 year old female presenting to the emergency department for abdominal pain. She states she initially started having viral symptoms a week ago. States people at work were sick to. Had a fever on Wednesday but then started to feel better after that. Starting 2 days ago she began to have abdominal pain and nausea. Pain is in the epigastric region and radiates down through her abdomen. States she has been vomiting the past couple days and cannot keep anything down. Has also been having diarrhea. Has not had any further fevers but has had chills. Denies chest pain, shortness of breath, headache, vision changes, weakness, numbness, dysuria, polyuria,, vaginal bleeding. Denies any recent antibiotic use. No other concerns noted at this time. Of note she has been seen before for chronic abdominal pain and has had multiple CTs done. Related Data Home Medications ?Medication ?Instructions ?Recorded ?Confirmed fluoxetine 20 mg capsule 20 mg PO DAILY 11/24/2311/12 Held on 03/25/25. Instructions: takes as prn Allergies Allergy/AdvReac Type Severity Reaction Status Date / Time No Known Drug Allergies Allergy Verified 03/25/25 12:49 Review of Systems Status of ROS Reports: 10 or more systems reviewed and unremarkable except as noted in History and below [facility] Medical History Viral infection ?B34.9 - Viral infection, unspecified (ICD-10) Viral exanthem ?B09 - Unspecified viral infection characterized by skin and mucous membrane lesions (ICD-10) Urinary tract infection ?N39.0 - Urinary tract infection, site not specified (ICD-10) Upper respiratory tract infection ?J06.9 - Acute upper respiratory infection, unspecified (ICD-10) Rash ?R21 - Rash and other nonspecific skin eruption (ICD-10) Pain in pelvis ?R10.2 - Pelvic and perineal pain (ICD-10) Mesenteric lymphadenitis ?I88.0 - Nonspecific mesenteric lymphadenitis (ICD-10) Lymphadenopathy ?R59.1 - Generalized enlarged lymph nodes (ICD-10) Lesion of liver ?K76.9 - Liver disease, unspecified (ICD-10) Left sided abdominal pain ?R10.9 - Unspecified abdominal pain (ICD-10) Laceration Epiploic appendagitis ?K63.89 - Other specified diseases of intestine (ICD-10) Dyspepsia ?R10.13 - Epigastric pain (ICD-10) Contusion ?T14.8XXA - Other injury of unspecified body region, initial encounter (ICD- 10) Cellulitis of left groin ?L03.314 - Cellulitis of groin (ICD-10) Back pain ?M54.9 - Dorsalgia, unspecified (ICD-10) Abdominal pain ?R10.9 - Unspecified abdominal pain (ICD-10) Surgical History H/O section ?Z98.891 - History of uterine scar from previous surgery (ICD-10) Social History Smoking Status: Never smoker Do you use any of these nicotine containing products: None How often do you have a drink containing alcohol: 2-4 times a month AUDIT-C Alcohol total score: 2 Non-prescribed substance use: denies use service: No Exam Narrative: Exam Narrative: Const: Well-nourished, Well-developed, in mild distress Eyes: PERRL, no conjunctival injection, and symmetrical lids HENT: Atraumatic external nose and ears. Moist mucous membranes. Neck: Symmetric, trachea midline, No thyromegaly. CVS: RRR, No murmurs or gallops. Peripheral pulses 2+ and equal in all extremities RESP: Unlabored respiratory effort. Clear to auscultation bilaterally. GI: Diffuse abdominal tenderness, Nondistended, No rebound or guarding. MSK:Extremities w/o deformity, Normal Active ROM Skin: Warm, Dry. No rashes or lesions. Neuro: Normal Muscle tone, No focal neurological deficits. Psych: Awake, Alert, & Oriented x3. Appropriate mood and affect. Const: Vital Signs, click to edit/add: Vital Signs - 24 hr 03/25/25 12:49 03/25/25 14:29 Temperature 98.3 F Pulse Rate [Pulse Oximeter] 83 92 Respiratory Rate 16 16 Blood Pressure [Ri ght Upper Arm] 116/77 109/75 Pulse Oximetry 98 99 Oxygen Delivery Me thod Room Air Room Air Course Vital Signs Vital signs: Initial Vital Signs Temperature 98.3 F 03/25/25 12:49 Temperature Source Temporal Artery Scan 03/25/25 12:49 Pulse Rate 83 03/25/25 12:49 Respiratory Rate 16 03/25/25 12:49 Blood Pressure 116/77 03/25/25 12:49 Blood Pressure Mean 90 03/25/25 12:49 Pulse Oximetry 98 03/25/25 12:49 Oxygen Delivery Method Room Air 03/25/25 12:49 Vital Signs Temperature 98.3 F 03/25/25 12:49 Pulse Rate 83 03/25/25 12:49 Respiratory Rate 16 03/25/25 12:49 Blood Pressure 116/77 03/25/25 12:49 Pulse Oximetry 98 03/25/25 12:49 Oxygen Delivery Method Room Air 03/25/25 12:49 Temperature 98.3 F 03/25/25 12:49 Pulse Rate 92 03/25/25 14:29 Respiratory Rate 16 03/25/25 14:29 Blood Pressure 109/75 03/25/25 14:29 Pulse Oximetry 99 03/25/25 14:29 Oxygen Delivery Method Room Air 03/25/25 14:29 Medications Administered Medications: Discontinued Medications Generic Name Dose Route Start Last Admin Trade Name Freq PRN Reason Stop Dose Admin Lactated Ringer's 1,000 mls @ 1,000 mls/hr 03/25/25 13:16 03/25/25 15:03 Lactated Ringers 1000 Ml IV 03/25/25 14:15 Infused .Q1H ONE Infusion Lidocaine/Aluminum/Magnesium/Simeth 30 ml 03/25/25 13:16 03/25/25 13:57 Gi Cocktail (Visc Lido/Antacid) 30 Ml PO 03/25/25 13:17 30 ml ONCE ONE Administration Ondansetron HCl 4 mg 03/25/25 13:16 03/25/25 13:57 Ondansetron 2 Mg/Ml Inj IVP 03/25/25 13:17 4 mg ONCE ONE Administration MDM - Abdominal Pain MDM Narrative Medical decision making narrative: Patient is a 40-year-old female presenting to emergency department for abdominal pain and nausea. Differential includes gastroenteritis, pancreatitis, gallbladder/liver disease. Based on location appendicitis and diverticulitis seems unlikely. Has had a previous but is having diarrhea so SBO seems unlikely. Has not had any antibiotics with less likely to be C diff. she has had multiple CTs in the past and with her symptoms likely being viral gastroenteritis will start out with a GI cocktail, Zofran and lab work. Will try to stay way from more radiation if possible. She continues to have symptoms despite medication. Due to this imaging will be ordered. Lab work returned showing no acute concerning abnormalities. She does have blood in her stool this is likely from a colitis. CT scan returned showing signs of colitis. This is likely the cause of her symptoms. Will discharge R- wave Zofran via instymeds. She is agreeable to this plan. Lab Data Labs: Lab Results 03/25/25 03/25/25 03/25/25 Range/Units 13:16 13:30 13:40 WBC 9.22 (4.50-11.00) K/uL RBC 4.69 (4.00-5.20) m/uL Hgb 12.8 (12.0-16.0) gm/dL Hct 39.5 (33.0-51.0) % MCV 84 (80-100) fL MCH 27 (26-34) pg MCHC 32 (32-36) gm/dL RDW Coeff of Dominga 14.0 (11.5-15.5) % Plt Count 255 (140-440) K/uL Neut % (Auto) 80.5 H (42.0-72.0) % Lymph % (Auto) 13.1 L (20-44) % Evangeline % (Auto) 5.6 (0.0-11.0) % Eos % (Auto) 0.5 (0.0-7.0) % Baso % (Auto) 0.2 (0.0-3.0) % Neut # (Auto) 7.40 H (1.7-7.0) K/uL Lymph # (Auto) 1.20 (0.90-2.90) K/uL Evangeline # (Auto) 0.50 (0.00-0.90) K/UL Eos # (Auto) 0.05 (0.00-0.50) K/uL Baso # (Auto) 0.02 (0.00-0.30) K/uL Abs Immat Gran (auto) 0.01 (0.00-0.30) K/uL Imm/Tot Granulo (auto) 0.1 % Sodium 136 (135-149) mmol/L Potassium 4.0 (3.6-5.1) mmol/L Chloride 103 (96-114) mmol/L Carbon Dioxide 25 (20-32) mmol/L Anion Gap 8 (7-15) mEq/L BUN 11 (5-24) mg/dL Creatinine 0.6 (0.5-1.5) mg/dL Estimated Creat Clear 94.99 Estimated GFR 117 ml/min Glucose 97 (60-115) mg/dL Calcium 9.3 (8.4-10.6) mg/dL Total Bilirubin 0.3 (0.1-1.5) mg/dL AST 33 (12-35) U/L ALT 22 (4-35) U/L Alkaline Phosphatase 111 (40-150) U/L Total Protein 7.6 (6.0-8.3) g/dL Albumin 4.3 (3.3-5.0) g/dL Lipase 39 (23-300) U/L Urine Color Yellow (Yellow) Urine Appearance Clear (Clear) Urine pH 5.5 (5.0-8.5) Ur Specific [place] >= 1.030 (1.000-1.030) Urine Protein Negative (Negative) Urine Glucose (UA) Negative (Negative) Urine Ketones 2+ A (Negative) Urine Blood Negative (Negative) Urine Nitrite Negative (Negative) Urine Bilirubin Negative (Negative) Urine Urobilinogen 0.2 (0.2-1.0) Ur Leukocyte Esterase Negative (Negative) Urine RBC 0-2 (0-2) Urine WBC 0-2 (0-5) Ur Squamous Epith Cells Few (None-Few) Urine Bacteria Few A (None) Urine HCG, Qual Negative (Negative) Stool Occult Blood Positive A (Negative) Stl C. diff Tox B Gene Negative (Negative) Stl C. diff [id number] PRESUMPTIVE NEGATIVE (Negative) SARS-CoV-2 (PCR) Negative SARS-CoV-2 (Negative) Influenza Type A (PCR) Negative PCR FLU A (Negative) Influenza Type B (PCR) Negative PCR FLU B (Negative) RSV (PCR) Negative PCR RSV (Negative) POC Creatinine 0.6 (0.6-1.3) mg/dl Imaging Data CT scan abdomen pelvis: Attestation: I have reviewed the pertinent imaging results. Radiologist's impression: 1. Nondistended colon however there is diffuse wall thickening of the colon with mucosal enhancement sigmoid colon which may represent colitis. There is otherwise no acute findings in the abdomen or pelvis seen. Please note that all CT scans at this facility use dose modulation, iterative reconstruction, and/or weight-based dosing when appropriate to reduce radiation dose to as low as reasonably achievable. Dictated by Sarah Galeana MD @ 03/25/2025 3:48:10 PM Discharge Plan Discharge Clinical Impression: Colitis Patient Disposition: Home, Self-Care Condition: Stable Instructions: Colitis (ED) Additional Instructions: Symptoms are likely secondary to colitis. This is typically viral and will need to improve on its own. Zofran prescribed be instymeds. If symptoms persist follow-up with the primary care provider. Return to emergency department for new or worsening symptoms. Prescriptions: No Action fluoxetine 20 mg capsule 20 mg PO DAILY Follow Up/Referrals: Mary Fulton MD [Primary Care Provider, Family Practice] Stand Alone Forms: [facility] Info Instructions
[2025-03-25 13:50] LABS: Creatinine, Point-of-Care* 0.6 mg/dl (0.6-1.3)
[2025-03-25 13:57] LABS: Fecal Occult Blood* Positive (Negative)
[2025-03-25 13:57] LABS: Hematocrit* 39.5 % (33.0-51.0); Hemoglobin* 12.8 gm/dL (12.0-16.0); Immature Granulocytes Abs Auto 0.01 K/uL (0.00-0.30); Immature Granulocytes Pct Auto 0.1 %; Mean Corpuscular HGB Conc 32 gm/dL (32-36); Mean Corpuscular Hemoglobin 27 pg (26-34); Mean Corpuscular Volume 84 fL (80-100); RDW Coefficient of Variation % 14.0 % (11.5-15.5); Red Blood Count* 4.69 m/uL (4.00-5.20); White Blood Count* 9.22 K/uL (4.50-11.00)
[2025-03-25] MEDS: ONDANSETRON 2 MG/ML inj 4 MG IVP (13:57)
[2025-03-25] MEDS: GI COCKTAIL (VISC LIDO/ANTACID) 30 ML PO (13:57)
[2025-03-25] MEDS: LACTATED RINGERS 1000 ML 1,000 ML IV (13:58)
[2025-03-25 14:01] LABS: Ur HCG Qualitative* Negative (Negative)
[2025-03-25 14:02] LABS: Appearance Urine Clear (Clear)
[2025-03-25 14:04] LABS: Lymphocytes Absolute Auto 1.20 K/uL (0.90-2.90)
[2025-03-25 14:05] LABS: Slide Review Reflex No
[2025-03-25 14:08] LABS: Albumin* 4.3 g/dL (3.3-5.0); Chloride* 103 mmol/L (96-114); Potassium* 4.0 mmol/L (3.6-5.1); Sodium* 136 mmol/L (135-149)
[2025-03-25 14:11] LABS: Alanine Aminotransferase* 22 U/L (4-35); Alkaline Phosphatase* 111 U/L (40-150); Anion Gap 8 mEq/L (7-15); Aspartate Amino Transferase* 33 U/L (12-35); Bilirubin Total* 0.3 mg/dL (0.1-1.5); Blood Urea Nitrogen* 11 mg/dL (5-24); Calcium* 9.3 mg/dL (8.4-10.6); Carbon Dioxide* 25 mmol/L (20-32); Creatinine* 0.6 mg/dL (0.5-1.5); Est. Creatinine Clearance* 94.99; Estimated Glomerular Filt Rate 117 ml/min; Glucose* 97 mg/dL (60-115); Total Protein* 7.6 g/dL (6.0-8.3)
[2025-03-25 14:29] VITALS: BP 109/75; PULSE 92; RESP 16; O2SAT 99
[2025-03-25 14:47] LABS: PCR FLU A Negative PCR FLU A (Negative); PCR FLU B Negative PCR FLU B (Negative); PCR RSV Negative PCR RSV (Negative); SARS PCR* Negative SARS-CoV-2 (Negative)
--- NOTE | 2025-03-25 14:50 | CRLHL7_ITS ---
For Patients: As a result of the Century Cures Act, medical imaging exams and procedure reports are released immediately into your electronic medical record. You may view this report before your referring provider. If you have questions, please contact your health care provider. INDICATION: Diffuse abdominal pain TECHNIQUE: CT abdomen and pelvis with 84 mL Isovue 370 intravenous contrast. COMPARISON: CT 9 07/10/2020 FINDINGS: Lower chest: Unremarkable. Liver: Normal in size and attenuation. No suspicious masses. Gallbladder and bile ducts: No stones or inflammation. No biliary dilatation. Pancreas: Unremarkable. No mass or inflammation. Spleen: Normal in size. No masses. Adrenal glands: Normal in size. No nodules. Kidneys: Normal in size. No suspicious masses, stones, or hydronephrosis. GI tract: Nondistended colon with diffuse wall thickening mild mucosal enhancement of sigmoid colon. Normal appendix. Vasculature: Abdominal aorta is normal in caliber. Lymph nodes: No lymphadenopathy. Peritoneum/Abdominal Wall: Unremarkable. No sign of mass or infiltration. No free air or significant free fluid. Pelvis: Bilateral small ovarian cysts measuring 1.4 centimeters bilaterally. Bones: Unremarkable for age. IMPRESSION: 1. Nondistended colon however there is diffuse wall thickening of the colon with mucosal enhancement sigmoid colon which may represent colitis. There is otherwise no acute findings in the abdomen or pelvis seen. Please note that all CT scans at this facility use dose modulation, iterative reconstruction, and/or weight-based dosing when appropriate to reduce radiation dose to as low as reasonably achievable. Dictated by Sarah Galeana MD @ 03/25/2025 3:48:10 PM (Electronically Signed)
[2025-03-25 14:51] LABS: C.Difficile Negative (Negative); CDIFFEPI 027 PRESUMPTIVE NEGATIVE (Negative)
[2025-03-27 23:54] LABS: Campylobacter PCR Detected; Enteroaggregative E coli PCR Not Detected; Enteropathogenic E coli PCR Not Detected; Enterotoxigenic E coli PCR Not Detected; Plesiomonas shig PCR Not Detected; Shiga toxin E coli PCR Not Detected
== END 2025-03-25 16:09 | disposition home or self-care (01) ==
PROVIDERS: Emergency Provider Student in an Organized Health Care Education/Training Program; PCP Family Medicine
DX: K52.9 Noninfective gastroenteritis and colitis, unspecified (principal)
CPT/HCPCS: 36415; 74177; 80053; 81001; 81025; 82270; 82565; 83690; 85025; 87086; 87493; 87507; 87631; 96374; 99284; A9270; J2405; J7120; Q9967